=== PATIENT | male | born 1945 | race Caucasian/White ===

== ENCOUNTER 2021-09-18 19:48 | Inpatient (IN) | payer BC, MEDICARE ==
[~2021-09-18] VITALS: Ht 172.7 cm; Wt 62.8 kg
[~2021-09-18 19:48] MED LIST: ALBU90AE INH; ETOMIDATE 2MG/ML 10ML VIAL IV ONE; LEVO250T58 MT; SODIUM CHLORIDE 0.9% 10ML VIAL ONE; VECURONIUM BROMIDE 10 MG/VIAL IV ONE
[2021-09-18 22:01] LABS: HEMATOCRIT. 32.9 % (42.0-52.0); HEMOGLOBIN. 11.2 g/dL (14.0-18.0); MEAN CORPUSCULAR VOLUME 100.4 fL (80.0-94.0); MEAN PLATELET VOLUME 9.1 fl (7.4-10.4); PLATELET 243 x1000/uL (130-400); RED BLOOD CELL COUNT 3.28 mill/uL (4.7-6.1); RED CELL DISTRIBUTION WIDTH 13.7 % (11.6-14.6)
[2021-09-18 22:07] LABS: CHLORIDE 107 mEq/L (98-107)
[2021-09-18 22:15] LABS: BG BASE EXCESS 2.8 mmol/L (-2.0-2.0); BG CARBOXYHEMOGLOBIN 0.5 % (0.5-1.5); BG DEOXYHEMOGLOBIN 1.5 % (0.0-5.0); BG FRACTION INSPIRED OXYGEN 40; BG HCO3 ACT 25.5 mmol/L (22.0-26.0); BG METHEMOGLOBIN 0.3 % (0.0-1.5); BG OXYGEN SATURATION 98.5 % (92.0-98.5); BG OXYHEMOGLOBIN 97.7 % (94.0-97.0); BG PCO2 33.1 mmHg (35.0-45.0); BG PH 7.505 (7.350-7.450); BG PO2 130.8 mmHg (75.0-100.0); BG SAMPLE SITE RIGHT RADIAL; BG TOTAL HEMOGLOBIN 12.8 g/dL (12.0-18.0); BG VENT MODE VENT - AC
[2021-09-18] MEDS ORDERED: VANCOMYCIN 1G PREMIX 200 ML IV ONE (22:30)
[2021-09-18] MEDS ORDERED: PIPERACILLIN/TAZ 3.375G PREMIX 50 ML IV ONE (22:30)
[2021-09-18] MEDS ORDERED: DEXTROSE 50% WATER 50ML SYRINGE IV ONE ×2 (22:30)
[2021-09-18 22:31] LABS: PLATELET ESTIMATE NORMAL
[2021-09-18] MEDS ORDERED: FENTANYL CITRATE/PF 50MCG/ML 2ML VIAL IV ONE (23:45)
[2021-09-18] MEDS ORDERED: PROPOFOL 10MG/ML 100ML 100 ML IV ONE (23:45)
[2021-09-19] MEDS ORDERED: LORAZEPAM 2MG/ML CPJ IV PRN (03:00)
[2021-09-19] MEDS ORDERED: PROPOFOL 10MG/ML 100ML 100 ML IV SCH (03:45)
[2021-09-19 04:06] LABS: HEPATITIS B SURFACE ANTIGEN NEGATIVE
[2021-09-19] MEDS ORDERED: LORAZEPAM 0.5MG TABLET PO PRN (11:30)
[2021-09-19] MEDS ORDERED: GUAIFENESIN 200MG/10ML SUGAR FREE UDC PO PRN (11:30)
[2021-09-19] MEDS ORDERED: PROPOFOL 10MG/ML 100ML 100 ML IV PRN (11:30)
[2021-09-19] MEDS ORDERED: IPRATROPIUM/ALBUTEROL 0.5-3(2.5)MG/3ML NEB NEB PRN (11:30)
[2021-09-19] MEDS ORDERED: ACETAMINOPHEN 650MG SUPP PR PRN (11:30)
[2021-09-19] MEDS ORDERED: DOCUSATE SODIUM 100MG CAPSULE PO PRN (11:30)
[2021-09-19] MEDS ORDERED: MAGNESIUM/ALUMINUM HYDROXIDE/SIMETHICONE 30ML UDC PO PRN (11:30)
[2021-09-19] MEDS ORDERED: HYDROCODONE/ACETAMINOPHEN 5/325MG TABLET PO PRN (11:30)
[2021-09-19] MEDS: BLOOD SUGAR DIAGNOSTIC STRIP TEST SCH ×3 (11:30→21:39)
[2021-09-19] MEDS ORDERED: DEXTROSE 50% WATER 50ML SYRINGE IV PRN (11:30)
[2021-09-19] MEDS ORDERED: NA PHOS,M-B/NA PHOS,DI-BA ENEMA 118ML PR PRN (11:30)
[2021-09-19] MEDS ORDERED: PIPERACILLIN/TAZ 3.375G PREMIX 50 ML IV NR (11:45)
[2021-09-19] MEDS ORDERED: NALOXONE HCL 0.4MG/ML VIAL IV PRN (11:45)
[2021-09-19 11:56] LABS: BG BASE EXCESS 2.5 mmol/L (-2.0-2.0); BG CARBOXYHEMOGLOBIN 0.1 % (0.5-1.5); BG DEOXYHEMOGLOBIN 12.8 % (0.0-5.0); BG HCO3 ACT 26.3 mmol/L (22.0-26.0); BG OXYGEN SATURATION 87.2 % (92.0-98.5); BG OXYHEMOGLOBIN 87.1 % (94.0-97.0); BG PCO2 37.5 mmHg (35.0-45.0); BG PH 7.463 (7.350-7.450); BG PO2 50.3 mmHg (75.0-100.0); BG SAMPLE SITE RIGHT BRACHIAL; BG TOTAL HEMOGLOBIN 12.1 g/dL (12.0-18.0); BG VENT MODE VENT - AC
[2021-09-19] MEDS ORDERED: VANCOMYCIN 750MG PREMIX 150 ML IV NR (12:00)
[2021-09-19] MEDS: DEXT 5%/0.45% NACL 1000ML 1,000 ML IV SCH (12:40)
[2021-09-19] MEDS ORDERED: DEXTROSE 50% WATER 50ML SYRINGE IV ONE (12:46)
[2021-09-19 13:23] LABS: HEMATOCRIT. 33.5 % (42.0-52.0); HEMOGLOBIN. 10.8 g/dL (14.0-18.0); MEAN CORPUSCULAR HEMOGLOBIN 33.1 pg (28.0-32.0); MEAN CORPUSCULAR VOLUME 102.4 fL (80.0-94.0); MEAN PLATELET VOLUME 9.2 fl (7.4-10.4); PLATELET 206 x1000/uL (130-400); RED BLOOD CELL COUNT 3.27 mill/uL (4.7-6.1); RED CELL DISTRIBUTION WIDTH 13.6 % (11.6-14.6)
[2021-09-19 13:29] LABS: CHLORIDE 110 mEq/L (98-107)
[2021-09-19 13:31] LABS: INR 1.1; PROTHROMBIN TIME 11.9 sec (9.6-11.0)
[2021-09-19 13:39] LABS: CREATINE KINASE 149 IU/L (39-308)
[2021-09-19 13:42] LABS: CREATINE KINASE MB FRACTION 7.4 ng/mL (0.5-3.6)
[2021-09-19 14:07] LABS: PLATELET ESTIMATE NORMAL
[2021-09-19] MEDS ORDERED: VANCOMYCIN 1G PREMIX 200 ML IV SCH (15:00)
[2021-09-19 15:50] LABS: *AMPHETAMINES SCREEN URINE NEGATIVE (NEGATIVE); *BARBITURATES SCREEN URINE NEGATIVE (NEGATIVE); *BENZODIAZEPINES SCREEN URINE NEGATIVE (NEGATIVE); *COCAINE SCREEN URINE NEGATIVE (NEGATIVE)
[2021-09-19 15:51] LABS: CANNABINOID URINE SCREEN NEGATIVE (NEGATIVE); METHADONE URINE SCREEN NEGATIVE (NEGATIVE); OPIATES URINE SCREEN NEGATIVE (NEGATIVE); PHENCYCLIDINE URINE SCREEN NEGATIVE (NEGATIVE)
[2021-09-19] MEDS ORDERED: PIPERACILLIN/TAZOBACTAM 3.375 G in DEXTROSE 5% WATER 50 ML IV SCH (21:00)
[2021-09-19 23:40] VITALS: BP 116/50
[2021-09-19 23:53] LABS: CREATINE KINASE MB FRACTION 4.3 ng/mL (0.5-3.6)
[2021-09-20] VITALS (33 sets, daily range): BP systolic 108–149; BP diastolic 53–71
[2021-09-20] MEDS: BLOOD SUGAR DIAGNOSTIC STRIP TEST SCH ×5 (00:14→18:21)
[2021-09-20] MEDS: ACETAMINOPHEN 325MG TABLET PO PRN (01:48)
[2021-09-20] MEDS: DEXT 5%/0.45% NACL 1000ML 1,000 ML IV SCH ×2 (05:01→20:58)
[2021-09-20 05:55] LABS: HEMATOCRIT. 31.7 % (42.0-52.0); MEAN CORPUSCULAR HEMOGLOBIN 32.9 pg (28.0-32.0); MEAN CORPUSCULAR VOLUME 103.9 fL (80.0-94.0); MEAN PLATELET VOLUME 9.7 fl (7.4-10.4); PLATELET 207 x1000/uL (130-400); RED BLOOD CELL COUNT 3.05 mill/uL (4.7-6.1); RED CELL DISTRIBUTION WIDTH 14.4 % (11.6-14.6)
[2021-09-20 06:12] LABS: CHLORIDE 106 mEq/L (98-107)
[2021-09-20] MEDS: IPRATROPIUM/ALBUTEROL 0.5-3(2.5)MG/3ML NEB NEB SCH ×3 (08:00→20:22)
[2021-09-20] MEDS ORDERED: PIPERACILLIN/TAZOBACTAM 3.375 G in DEXTROSE 5% WATER 50 ML IV SCH (09:00)
[2021-09-20 09:25] LABS: BG BASE EXCESS 0.7 mmol/L (-2.0-2.0); BG CARBOXYHEMOGLOBIN 0.2 % (0.5-1.5); BG DEOXYHEMOGLOBIN 2.5 % (0.0-5.0); BG FRACTION INSPIRED OXYGEN 80; BG HCO3 ACT 24.5 mmol/L (22.0-26.0); BG METHEMOGLOBIN 0.1 % (0.0-1.5); BG OXYGEN SATURATION 97.5 % (92.0-98.5); BG OXYHEMOGLOBIN 97.2 % (94.0-97.0); BG PO2 105.9 mmHg (75.0-100.0); BG SAMPLE SITE RIGHT RADIAL; BG TOTAL HEMOGLOBIN 10.5 g/dL (12.0-18.0); BG VENT MODE VENT - AC
[2021-09-20] MEDS ORDERED: MEROPENEM 500 MG in SODIUM CHLORIDE 0.9% 50 ML IV SCH (10:00)
[2021-09-20] MEDS ORDERED: PROPOFOL 10MG/ML 100ML 100 ML IV PRN (11:15)
[2021-09-20] MEDS ORDERED: DEXTROSE 50% WATER 50ML SYRINGE IV PRN (11:30)
[2021-09-20] MEDS: MEROPENEM 1000MG in NORMAL SALINE 100ML IV SCH (11:49)
[2021-09-20 15:41] LABS: PLATELET ESTIMATE NORMAL
[2021-09-20 18:13] LABS: CREATINE KINASE MB FRACTION 2.8 ng/mL (0.5-3.6)
[2021-09-20] MEDS ORDERED: BUPIVACAINE HCL/PF 0.5% (5MG/ML) 30ML ONE (20:13)
[2021-09-20] MEDS ORDERED: LIDOCAINE HCL 1% 20ML VIAL (Pyxis) INJ ONE (20:13)
[2021-09-20] MEDS ORDERED: SKIN ADHESIVE 0.7 GM EA TOP ONE (20:13)
[2021-09-20] MEDS ORDERED: POLYMYXIN B SULFATE 500000 UNITS/VIAL ONE (20:13)
[2021-09-20] MEDS ORDERED: ROCURONIUM BROMIDE 10MG/ML VIAL 5ML IV ONE (21:25)
[2021-09-20] MEDS ORDERED: HYDROMORPHONE HCL/PF 2MG/ML (OR) ONE (21:28)
[2021-09-20] MEDS ORDERED: DEXAMETHASONE 4MG/ML 1ML VIAL ONE (21:30)
[2021-09-20] MEDS ORDERED: CALCIUM CHLORIDE 1GM/10ML SYR IV ONE (21:39)
[2021-09-20] MEDS ORDERED: MIDAZOLAM HCL 5 MG/5 ML VIAL ONE (22:55)
[2021-09-20] MEDS ORDERED: MORPHINE SULFATE 4 MG/ML CPJ (NOT FOR IM USE) IV PRN (23:15)
[2021-09-21] VITALS (58 sets, daily range): BP systolic 117–169; BP diastolic 54–84
[2021-09-21] MEDS: BLOOD SUGAR DIAGNOSTIC STRIP TEST SCH ×4 (00:12→18:00)
[2021-09-21] MEDS: IPRATROPIUM/ALBUTEROL 0.5-3(2.5)MG/3ML NEB NEB SCH ×4 (00:16→21:27)
[2021-09-21] MEDS: ACETAMINOPHEN 325MG TABLET PO PRN (00:56)
[2021-09-21 06:09] LABS: HEMATOCRIT. 32.3 % (42.0-52.0); HEMOGLOBIN. 10.2 g/dL (14.0-18.0); MEAN CORPUSCULAR HEMOGLOBIN 33.2 pg (28.0-32.0); MEAN CORPUSCULAR VOLUME 104.8 fL (80.0-94.0); MEAN PLATELET VOLUME 9.9 fl (7.4-10.4); PLATELET 211 x1000/uL (130-400); RED BLOOD CELL COUNT 3.08 mill/uL (4.7-6.1)
[2021-09-21 06:22] LABS: CHLORIDE 104 mEq/L (98-107)
[2021-09-21 07:38] LABS: PLATELET ESTIMATE NORMAL
[2021-09-21 08:33] LABS: BG BASE EXCESS -7.9 mmol/L (-2.0-2.0); BG CARBOXYHEMOGLOBIN 0.3 % (0.5-1.5); BG DEOXYHEMOGLOBIN 5.6 % (0.0-5.0); BG FRACTION INSPIRED OXYGEN 40; BG METHEMOGLOBIN 0.3 % (0.0-1.5); BG OXYGEN SATURATION 94.4 % (92.0-98.5); BG OXYHEMOGLOBIN 93.8 % (94.0-97.0); BG PCO2 27.7 mmHg (35.0-45.0); BG PH 7.379 (7.350-7.450); BG PO2 74.8 mmHg (75.0-100.0); BG TOTAL HEMOGLOBIN 10.7 g/dL (12.0-18.0); BG VENT MODE VENT - AC
[2021-09-21] MEDS: FAMOTIDINE 20MG/2ML VIAL IV SCH (08:50)
[2021-09-21] MEDS: MEROPENEM 1000MG in NORMAL SALINE 100ML IV SCH (10:35)
[2021-09-21] MEDS: DEXT 5%/0.45% NACL 1000ML 1,000 ML IV SCH (10:36)
[2021-09-21] MEDS: PROPOFOL 10MG/ML 100ML 100 ML IV PRN ×2 (11:36→23:12)
[2021-09-21] MEDS ORDERED: VANCOMYCIN 1G PREMIX 200 ML IV NR (12:00)
[2021-09-21] MEDS ORDERED: LIDOCAINE HCL/PF 1% 10 MG/ML 5ML VIAL ONE (13:08)
[2021-09-21] MEDS ORDERED: PRED5TAB MT (13:50)
[2021-09-21] MEDS ORDERED: TACR1TAB MT (13:50)
[2021-09-21] MEDS ORDERED: TAMS-11 MT (13:50)
[2021-09-21] MEDS ORDERED: SIMV-43 MT (13:50)
[2021-09-21] MEDS ORDERED: LABE200T9 MT (13:50)
[2021-09-21] MEDS ORDERED: DOCU-138 MT (13:50)
[2021-09-21] MEDS ORDERED: SULF1TAB48 MT ×2 (13:50)
[2021-09-21] MEDS ORDERED: TRAM50TA94 MT (13:50)
[2021-09-21] MEDS ORDERED: INSU100I45 (13:50)
[2021-09-21] MEDS ORDERED: INSU100I28 SQ (13:50)
[2021-09-21] MEDS ORDERED: BUME2TAB7 PO (13:50)
[2021-09-21] MEDS ORDERED: PROT40 MT (13:50)
[2021-09-21] MEDS ORDERED: LIDO700A30 TP (13:50)
[2021-09-21] MEDS ORDERED: FINA5TAB11 MT (13:50)
[2021-09-21] MEDS ORDERED: POLY17PO3 MT (13:50)
[2021-09-21] MEDS ORDERED: NIFE-32 PO (13:50)
[2021-09-22] VITALS (53 sets, daily range): BP systolic 75–209; BP diastolic 23–147
[2021-09-22] MEDS: BLOOD SUGAR DIAGNOSTIC STRIP TEST SCH ×4 (00:48→18:20)
[2021-09-22] MEDS: IPRATROPIUM/ALBUTEROL 0.5-3(2.5)MG/3ML NEB NEB SCH ×4 (02:32→20:21)
[2021-09-22] MEDS: PROPOFOL 10MG/ML 100ML 100 ML IV PRN ×3 (05:36→19:53)
[2021-09-22] MEDS: CLONIDINE 0.1MG TABLET PO PRN (05:40)
[2021-09-22 06:06] LABS: HEMATOCRIT. 29.2 % (42.0-52.0); HEMOGLOBIN. 9.7 g/dL (14.0-18.0); MEAN CORPUSCULAR VOLUME 101.9 fL (80.0-94.0); MEAN PLATELET VOLUME 9.5 fl (7.4-10.4); PLATELET 210 x1000/uL (130-400); RED BLOOD CELL COUNT 2.87 mill/uL (4.7-6.1)
[2021-09-22 07:24] LABS: PLATELET ESTIMATE NORMAL
[2021-09-22] MEDS: FAMOTIDINE 20MG/2ML VIAL IV SCH (08:32)
[2021-09-22 09:10] LABS: BG DEOXYHEMOGLOBIN 2.8 % (0.0-5.0); BG FRACTION INSPIRED OXYGEN 35; BG HCO3 ACT 23.8 mmol/L (22.0-26.0); BG OXYGEN SATURATION 97.2 % (92.0-98.5); BG OXYHEMOGLOBIN 97.2 % (94.0-97.0); BG PCO2 31.1 mmHg (35.0-45.0); BG PH 7.501 (7.350-7.450); BG PO2 98.1 mmHg (75.0-100.0); BG SAMPLE SITE RIGHT RADIAL; BG TOTAL HEMOGLOBIN 9.9 g/dL (12.0-18.0); BG VENT MODE VENT - AC
[2021-09-22] MEDS: MEROPENEM 1000MG in NORMAL SALINE 100ML IV SCH (11:45)
[2021-09-22 11:59] LABS: BG BASE EXCESS -0.3 mmol/L (-2.0-2.0); BG CARBOXYHEMOGLOBIN 0.3 % (0.5-1.5); BG DEOXYHEMOGLOBIN 5.1 % (0.0-5.0); BG FRACTION INSPIRED OXYGEN 35; BG HCO3 ACT 23.7 mmol/L (22.0-26.0); BG METHEMOGLOBIN 0.1 % (0.0-1.5); BG OXYGEN SATURATION 94.9 % (92.0-98.5); BG OXYHEMOGLOBIN 94.5 % (94.0-97.0); BG PCO2 36.4 mmHg (35.0-45.0); BG PH 7.432 (7.350-7.450); BG PO2 83.4 mmHg (75.0-100.0); BG SAMPLE SITE RIGHT RADIAL; BG TOTAL HEMOGLOBIN 11.4 g/dL (12.0-18.0); BG VENT MODE VENT - CPAP
[2021-09-22] MEDS: DEXT 5%/0.45% NACL 1000ML 1,000 ML IV SCH (16:49)
[2021-09-22] MEDS: INSULIN LISPRO 100 UNITS/ML SUBCUT SCH (19:16)
[2021-09-22] MEDS: PIPERACILLIN/TAZOBACTAM 3.375 G in DEXTROSE 5% WATER 50 ML IV SCH (21:23)
[2021-09-23] VITALS (51 sets, daily range): BP systolic 106–237; BP diastolic 46–141
[2021-09-23] MEDS: BLOOD SUGAR DIAGNOSTIC STRIP TEST SCH ×5 (00:40→23:52)
[2021-09-23] MEDS: IPRATROPIUM/ALBUTEROL 0.5-3(2.5)MG/3ML NEB NEB SCH ×5 (01:14→20:44)
[2021-09-23] MEDS: PROPOFOL 10MG/ML 100ML 100 ML IV PRN ×2 (04:37→13:08)
[2021-09-23] MEDS: INSULIN LISPRO 100 UNITS/ML SUBCUT SCH ×5 (06:05→23:27)
[2021-09-23 06:08] LABS: HEMATOCRIT. 28.4 % (42.0-52.0); HEMOGLOBIN. 9.4 g/dL (14.0-18.0); MEAN CORPUSCULAR HEMOGLOBIN 34.2 pg (28.0-32.0); MEAN CORPUSCULAR VOLUME 102.8 fL (80.0-94.0); MEAN PLATELET VOLUME 9.4 fl (7.4-10.4); PLATELET 201 x1000/uL (130-400); RED BLOOD CELL COUNT 2.77 mill/uL (4.7-6.1); RED CELL DISTRIBUTION WIDTH 13.8 % (11.6-14.6)
[2021-09-23 07:12] LABS: CHLORIDE 106 mEq/L (98-107)
[2021-09-23 07:42] LABS: BG BASE EXCESS 0.1 mmol/L (-2.0-2.0); BG CARBOXYHEMOGLOBIN 0.3 % (0.5-1.5); BG DEOXYHEMOGLOBIN 2.6 % (0.0-5.0); BG FRACTION INSPIRED OXYGEN 30; BG HCO3 ACT 22.6 mmol/L (22.0-26.0); BG OXYGEN SATURATION 97.4 % (92.0-98.5); BG OXYHEMOGLOBIN 97.1 % (94.0-97.0); BG PCO2 28.8 mmHg (35.0-45.0); BG PH 7.512 (7.350-7.450); BG PO2 106.3 mmHg (75.0-100.0); BG SAMPLE SITE LEFT RADIAL; BG TOTAL HEMOGLOBIN 9.6 g/dL (12.0-18.0); BG VENT MODE VENT - AC/VC
[2021-09-23] MEDS: FAMOTIDINE 20MG/2ML VIAL IV SCH (08:55)
[2021-09-23] MEDS: PIPERACILLIN/TAZOBACTAM 3.375 G in DEXTROSE 5% WATER 50 ML IV SCH ×2 (08:55→21:00)
[2021-09-23 10:39] LABS: PLATELET ESTIMATE NORMAL
[2021-09-23] MEDS: DEXT 5%/0.45% NACL 1000ML 1,000 ML IV SCH (16:31)
[2021-09-23] MEDS: CLONIDINE 0.1MG TABLET PO PRN (16:36)
[2021-09-24] VITALS (50 sets, daily range): BP systolic 96–247; BP diastolic 48–113
[2021-09-24] MEDS: IPRATROPIUM/ALBUTEROL 0.5-3(2.5)MG/3ML NEB NEB SCH ×4 (01:26→20:22)
[2021-09-24] MEDS: PROPOFOL 10MG/ML 100ML 100 ML IV PRN ×4 (02:37→22:55)
[2021-09-24] MEDS: BLOOD SUGAR DIAGNOSTIC STRIP TEST SCH ×3 (05:38→17:17)
[2021-09-24] MEDS: INSULIN LISPRO 100 UNITS/ML SUBCUT SCH ×3 (05:38→17:18)
[2021-09-24 06:11] LABS: HEMATOCRIT. 27.9 % (42.0-52.0); HEMOGLOBIN. 9.2 g/dL (14.0-18.0); MEAN CORPUSCULAR HEMOGLOBIN 33.7 pg (28.0-32.0); MEAN CORPUSCULAR VOLUME 102.2 fL (80.0-94.0); MEAN PLATELET VOLUME 9.3 fl (7.4-10.4); PLATELET 196 x1000/uL (130-400); RED BLOOD CELL COUNT 2.73 mill/uL (4.7-6.1); RED CELL DISTRIBUTION WIDTH 13.6 % (11.6-14.6)
[2021-09-24 06:14] LABS: CHLORIDE 105 mEq/L (98-107)
[2021-09-24] MEDS: PIPERACILLIN/TAZOBACTAM 3.375 G in DEXTROSE 5% WATER 50 ML IV SCH ×2 (08:08→21:53)
[2021-09-24] MEDS: FAMOTIDINE 20MG/2ML VIAL IV SCH (08:08)
[2021-09-24 09:40] LABS: BG BASE EXCESS 0.3 mmol/L (-2.0-2.0); BG CARBOXYHEMOGLOBIN 0.3 % (0.5-1.5); BG FRACTION INSPIRED OXYGEN 30; BG HCO3 ACT 23.6 mmol/L (22.0-26.0); BG METHEMOGLOBIN 0.1 % (0.0-1.5); BG OXYHEMOGLOBIN 94.6 % (94.0-97.0); BG PCO2 33.3 mmHg (35.0-45.0); BG PH 7.468 (7.350-7.450); BG PO2 79.5 mmHg (75.0-100.0); BG SAMPLE SITE RIGHT RADIAL; BG TOTAL HEMOGLOBIN 10.7 g/dL (12.0-18.0); BG VENT MODE VENT - CPAP
[2021-09-24 10:55] LABS: PLATELET ESTIMATE NORMAL
[2021-09-24] MEDS: PREDNISONE 5MG TABLET PO SCH (11:13)
[2021-09-25] VITALS (59 sets, daily range): BP systolic 108–189; BP diastolic 20–116
[2021-09-25] MEDS: BLOOD SUGAR DIAGNOSTIC STRIP TEST SCH ×5 (00:01→23:49)
[2021-09-25] MEDS: CLONIDINE 0.1MG TABLET PO PRN ×4 (00:05→18:06)
[2021-09-25] MEDS: INSULIN LISPRO 100 UNITS/ML SUBCUT SCH ×5 (00:06→23:49)
[2021-09-25] MEDS: IPRATROPIUM/ALBUTEROL 0.5-3(2.5)MG/3ML NEB NEB SCH ×4 (01:02→20:38)
[2021-09-25] MEDS: PROPOFOL 10MG/ML 100ML 100 ML IV PRN ×4 (04:01→22:48)
[2021-09-25 05:37] LABS: HEMATOCRIT. 26.3 % (42.0-52.0); HEMOGLOBIN. 8.8 g/dL (14.0-18.0); MEAN CORPUSCULAR HEMOGLOBIN 34.1 pg (28.0-32.0); MEAN PLATELET VOLUME 9.2 fl (7.4-10.4); PLATELET 196 x1000/uL (130-400); RED BLOOD CELL COUNT 2.58 mill/uL (4.7-6.1); RED CELL DISTRIBUTION WIDTH 13.7 % (11.6-14.6)
[2021-09-25 05:51] LABS: CHLORIDE 103 mEq/L (98-107)
[2021-09-25] MEDS: PIPERACILLIN/TAZOBACTAM 3.375 G in DEXTROSE 5% WATER 50 ML IV SCH ×2 (08:50→20:06)
[2021-09-25] MEDS: FAMOTIDINE 20MG/2ML VIAL IV SCH (08:50)
[2021-09-25] MEDS: PREDNISONE 5MG TABLET PO SCH (08:50)
[2021-09-25 10:31] LABS: PLATELET ESTIMATE NORMAL
[2021-09-25] MEDS: LORAZEPAM 2MG/ML CPJ IV PRN ×2 (16:51→20:06)
[2021-09-26] VITALS (55 sets, daily range): BP systolic 121–177; BP diastolic 46–101
[2021-09-26] MEDS: IPRATROPIUM/ALBUTEROL 0.5-3(2.5)MG/3ML NEB NEB SCH ×4 (02:15→20:07)
[2021-09-26] MEDS: ACETAMINOPHEN 325MG TABLET PO PRN (04:01)
[2021-09-26] MEDS: LORAZEPAM 2MG/ML CPJ IV PRN (06:34)
[2021-09-26] MEDS: BLOOD SUGAR DIAGNOSTIC STRIP TEST SCH ×3 (06:34→18:36)
[2021-09-26] MEDS: INSULIN LISPRO 100 UNITS/ML SUBCUT SCH ×3 (06:34→17:52)
[2021-09-26 06:39] LABS: HEMOGLOBIN. 9.8 g/dL (14.0-18.0); MEAN CORPUSCULAR HEMOGLOBIN 34.2 pg (28.0-32.0); MEAN CORPUSCULAR VOLUME 101.6 fL (80.0-94.0); MEAN PLATELET VOLUME 9.4 fl (7.4-10.4); PLATELET 272 x1000/uL (130-400); RED BLOOD CELL COUNT 2.86 mill/uL (4.7-6.1); RED CELL DISTRIBUTION WIDTH 13.6 % (11.6-14.6)
[2021-09-26] MEDS ORDERED: MORPHINE SULFATE 2 MG/ML CPJ (NOT FOR IM USE) IV PRN (08:00)
[2021-09-26] MEDS: FAMOTIDINE 20MG/2ML VIAL IV SCH (08:17)
[2021-09-26] MEDS: AMLODIPINE 5MG TABLET PO SCH ×2 (08:17→21:45)
[2021-09-26] MEDS: PREDNISONE 5MG TABLET PO SCH (08:17)
[2021-09-26] MEDS: PIPERACILLIN/TAZOBACTAM 3.375 G in DEXTROSE 5% WATER 50 ML IV SCH ×2 (08:18→21:44)
[2021-09-26] MEDS: PROPOFOL 10MG/ML 100ML 100 ML IV PRN ×3 (08:20→21:35)
[2021-09-26 10:53] LABS: BG BASE EXCESS 0.5 mmol/L (-2.0-2.0); BG CARBOXYHEMOGLOBIN 0.3 % (0.5-1.5); BG DEOXYHEMOGLOBIN 5.8 % (0.0-5.0); BG HCO3 ACT 22.6 mmol/L (22.0-26.0); BG METHEMOGLOBIN 0.3 % (0.0-1.5); BG OXYGEN SATURATION 94.2 % (92.0-98.5); BG OXYHEMOGLOBIN 93.6 % (94.0-97.0); BG PCO2 27.8 mmHg (35.0-45.0); BG PH 7.527 (7.350-7.450); BG PO2 68.5 mmHg (75.0-100.0); BG SAMPLE SITE RIGHT RADIAL; BG TOTAL HEMOGLOBIN 10.2 g/dL (12.0-18.0); BG VENT MODE VENT - AC
[2021-09-26 13:00] LABS: NUCLEATED RED BLOOD CELLS 1 /100 WBC; PLATELET ESTIMATE NORMAL
[2021-09-26] MEDS: HYDRALAZINE HCL 50MG TABLET PO SCH (21:45)
[2021-09-27] VITALS (23 sets, daily range): BP systolic 107–191; BP diastolic 50–106
[2021-09-27] MEDS: IPRATROPIUM/ALBUTEROL 0.5-3(2.5)MG/3ML NEB NEB SCH ×4 (02:09→20:52)
[2021-09-27] MEDS: PROPOFOL 10MG/ML 100ML 100 ML IV PRN ×3 (03:39→20:57)
[2021-09-27] MEDS: HYDRALAZINE HCL 50MG TABLET PO SCH ×4 (06:00→21:49)
[2021-09-27] MEDS: INSULIN LISPRO 100 UNITS/ML SUBCUT SCH ×4 (06:35→17:51)
[2021-09-27] MEDS: BLOOD SUGAR DIAGNOSTIC STRIP TEST SCH ×3 (06:36→17:46)
[2021-09-27 06:38] LABS: HEMATOCRIT. 26.7 % (42.0-52.0); HEMOGLOBIN. 8.9 g/dL (14.0-18.0); MEAN CORPUSCULAR HEMOGLOBIN 33.8 pg (28.0-32.0); MEAN CORPUSCULAR VOLUME 101.3 fL (80.0-94.0); MEAN PLATELET VOLUME 9.2 fl (7.4-10.4); PLATELET 319 x1000/uL (130-400); RED BLOOD CELL COUNT 2.63 mill/uL (4.7-6.1); RED CELL DISTRIBUTION WIDTH 13.6 % (11.6-14.6)
[2021-09-27 08:27] LABS: PLATELET ESTIMATE NORMAL
[2021-09-27 10:41] LABS: BG BASE EXCESS 4.1 mmol/L (-2.0-2.0); BG CARBOXYHEMOGLOBIN 0.3 % (0.5-1.5); BG DEOXYHEMOGLOBIN 5.8 % (0.0-5.0); BG FRACTION INSPIRED OXYGEN 30; BG HCO3 ACT 26.3 mmol/L (22.0-26.0); BG METHEMOGLOBIN 0.1 % (0.0-1.5); BG OXYGEN SATURATION 94.2 % (92.0-98.5); BG OXYHEMOGLOBIN 93.8 % (94.0-97.0); BG PCO2 30.7 mmHg (35.0-45.0); BG SAMPLE SITE RIGHT RADIAL; BG TOTAL HEMOGLOBIN 10.3 g/dL (12.0-18.0); BG VENT MODE VENT - AC
[2021-09-27] MEDS: PREDNISONE 5MG TABLET PO SCH (11:36)
[2021-09-27] MEDS: FAMOTIDINE 20MG/2ML VIAL IV SCH (11:37)
[2021-09-27] MEDS: AMLODIPINE 5MG TABLET PO SCH ×2 (11:47→21:49)
[2021-09-27] MEDS: PIPERACILLIN/TAZOBACTAM 3.375 G in DEXTROSE 5% WATER 50 ML IV SCH (11:51)
[2021-09-27 13:25] LABS: BG BASE EXCESS 1.3 mmol/L (-2.0-2.0); BG CARBOXYHEMOGLOBIN 0.3 % (0.5-1.5); BG FRACTION INSPIRED OXYGEN 40; BG HCO3 ACT 24.2 mmol/L (22.0-26.0); BG METHEMOGLOBIN 0.1 % (0.0-1.5); BG OXYHEMOGLOBIN 93.6 % (94.0-97.0); BG PCO2 32.1 mmHg (35.0-45.0); BG PH 7.495 (7.350-7.450); BG SAMPLE SITE RIGHT RADIAL; BG TOTAL HEMOGLOBIN 10.4 g/dL (12.0-18.0); BG VENT MODE VENT - CPAP
[2021-09-27] MEDS: LORAZEPAM 2MG/ML CPJ IV PRN (13:52)
[2021-09-28] VITALS (78 sets, daily range): BP systolic 114–222; BP diastolic 34–116
[2021-09-28] MEDS: BLOOD SUGAR DIAGNOSTIC STRIP TEST SCH ×4 (00:22→17:20)
[2021-09-28] MEDS: INSULIN LISPRO 100 UNITS/ML SUBCUT SCH ×4 (00:28→17:22)
[2021-09-28] MEDS: IPRATROPIUM/ALBUTEROL 0.5-3(2.5)MG/3ML NEB NEB SCH ×4 (01:09→20:32)
[2021-09-28] MEDS: HYDRALAZINE HCL 50MG TABLET PO SCH ×3 (05:35→22:46)
[2021-09-28 05:49] LABS: HEMATOCRIT. 30.2 % (42.0-52.0); HEMOGLOBIN. 9.7 g/dL (14.0-18.0); MEAN CORPUSCULAR HEMOGLOBIN 32.7 pg (28.0-32.0); MEAN CORPUSCULAR VOLUME 101.7 fL (80.0-94.0); MEAN PLATELET VOLUME 9.2 fl (7.4-10.4); PLATELET 390 x1000/uL (130-400); RED BLOOD CELL COUNT 2.97 mill/uL (4.7-6.1); RED CELL DISTRIBUTION WIDTH 13.5 % (11.6-14.6)
[2021-09-28] MEDS: FAMOTIDINE 20MG/2ML VIAL IV SCH (08:25)
[2021-09-28] MEDS: ACETAMINOPHEN 325MG TABLET PO PRN (08:25)
[2021-09-28] MEDS: PREDNISONE 5MG TABLET PO SCH (08:25)
[2021-09-28] MEDS: AMLODIPINE 5MG TABLET PO SCH ×2 (08:25→21:18)
[2021-09-28 08:58] LABS: BG BASE EXCESS 1.6 mmol/L (-2.0-2.0); BG CARBOXYHEMOGLOBIN 0.3 % (0.5-1.5); BG DEOXYHEMOGLOBIN 3.3 % (0.0-5.0); BG FRACTION INSPIRED OXYGEN 30; BG HCO3 ACT 25.1 mmol/L (22.0-26.0); BG METHEMOGLOBIN 0.1 % (0.0-1.5); BG OXYGEN SATURATION 96.7 % (92.0-98.5); BG OXYHEMOGLOBIN 96.3 % (94.0-97.0); BG PCO2 35.2 mmHg (35.0-45.0); BG PH 7.471 (7.350-7.450); BG PO2 89.1 mmHg (75.0-100.0); BG SAMPLE SITE RIGHT RADIAL; BG TOTAL HEMOGLOBIN 10.8 g/dL (12.0-18.0); BG VENT MODE VENT - AC
[2021-09-28 09:06] LABS: PLATELET ESTIMATE NORMAL
[2021-09-28] MEDS ORDERED: POTASSIUM CHLORIDE 20MEQ/PACKET PO NR (10:00)
[2021-09-28] MEDS ORDERED: LEVOFLOXACIN 250MG PREMIX 50 ML IV SCH (11:00)
[2021-09-28] MEDS ORDERED: MIDAZOLAM HCL 100 MG in SODIUM CHLORIDE 0.9% 80 ML IV PRN (11:15)
[2021-09-28] MEDS ORDERED: FENTANYL CITRATE/PF 2,500 MCG in SODIUM CHLORIDE 0.9% 200 ML IV PRN (12:45)
[2021-09-28] MEDS ORDERED: FENTANYL 2500MCG/250ML PMX 250 ML IV PRN (12:45)
[2021-09-28] MEDS ORDERED: LEVOFLOXACIN 750MG PREMIX 150 ML IV NR (13:00)
[2021-09-28] MEDS ORDERED: VANCOMYCIN 1500MG in DEXTROSE 5% WATER 250ML IV NR (14:00)
[2021-09-28] MEDS ORDERED: TACR5CAP PO (19:19)
[2021-09-29] VITALS (88 sets, daily range): BP systolic 101–223; BP diastolic 31–138
[2021-09-29] MEDS: INSULIN LISPRO 100 UNITS/ML SUBCUT SCH ×5 (00:21→23:51)
[2021-09-29] MEDS: IPRATROPIUM/ALBUTEROL 0.5-3(2.5)MG/3ML NEB NEB SCH ×4 (01:21→20:07)
[2021-09-29] MEDS: BLOOD SUGAR DIAGNOSTIC STRIP TEST SCH ×5 (06:00→23:51)
[2021-09-29] MEDS: HYDRALAZINE HCL 50MG TABLET PO SCH ×4 (06:32→22:00)
[2021-09-29 06:38] LABS: HEMATOCRIT. 28.1 % (42.0-52.0); HEMOGLOBIN. 9.3 g/dL (14.0-18.0); MEAN CORPUSCULAR HEMOGLOBIN 33.1 pg (28.0-32.0); MEAN CORPUSCULAR VOLUME 100.2 fL (80.0-94.0); MEAN PLATELET VOLUME 9.1 fl (7.4-10.4); PLATELET 403 x1000/uL (130-400); RED CELL DISTRIBUTION WIDTH 13.5 % (11.6-14.6)
[2021-09-29] MEDS: PREDNISONE 5MG TABLET PO SCH (08:19)
[2021-09-29] MEDS: FAMOTIDINE 20MG/2ML VIAL IV SCH (08:19)
[2021-09-29] MEDS: AMLODIPINE 5MG TABLET PO SCH ×3 (08:20→21:44)
[2021-09-29 09:49] LABS: PLATELET ESTIMATE SLIGHTLY INCREASED
[2021-09-29 11:17] LABS: BG BASE EXCESS -0.5 mmol/L (-2.0-2.0); BG CARBOXYHEMOGLOBIN 0.3 % (0.5-1.5); BG DEOXYHEMOGLOBIN 5.2 % (0.0-5.0); BG FRACTION INSPIRED OXYGEN 30; BG HCO3 ACT 23.8 mmol/L (22.0-26.0); BG METHEMOGLOBIN 0.3 % (0.0-1.5); BG OXYGEN SATURATION 94.8 % (92.0-98.5); BG OXYHEMOGLOBIN 94.2 % (94.0-97.0); BG PCO2 37.7 mmHg (35.0-45.0); BG PH 7.418 (7.350-7.450); BG PO2 76.8 mmHg (75.0-100.0); BG SAMPLE SITE RIGHT RADIAL; BG TOTAL HEMOGLOBIN 10.8 g/dL (12.0-18.0); BG VENT MODE VENT - AC
[2021-09-29] MEDS ORDERED: POTASSIUM CHLORIDE INJ 40 MEQ in DEXT 5% WATER 250 ML IV ONE (11:45)
[2021-09-29] MEDS: KCL 20MEQ/100ML X 2 FOR TOTAL KCL 40MEQ/200ML IV SCH ×2 (13:03→14:39)
[2021-09-29 13:24] LABS: BG BASE EXCESS 0.8 mmol/L (-2.0-2.0); BG CARBOXYHEMOGLOBIN 0.3 % (0.5-1.5); BG DEOXYHEMOGLOBIN 6.5 % (0.0-5.0); BG HCO3 ACT 25.2 mmol/L (22.0-26.0); BG OXYGEN SATURATION 93.5 % (92.0-98.5); BG OXYHEMOGLOBIN 93.2 % (94.0-97.0); BG PCO2 39.4 mmHg (35.0-45.0); BG PH 7.424 (7.350-7.450); BG PO2 70.1 mmHg (75.0-100.0); BG SAMPLE SITE RIGHT RADIAL; BG TOTAL HEMOGLOBIN 11.1 g/dL (12.0-18.0); BG VENT MODE VENT - CPAP
[2021-09-29] MEDS: METRONIDAZOLE 250MG TABLET PO SCH ×3 (14:39→22:00)
[2021-09-29 16:35] LABS: BG CARBOXYHEMOGLOBIN 0.3 % (0.5-1.5); BG DEOXYHEMOGLOBIN 2.3 % (0.0-5.0); BG HCO3 ACT 23.5 mmol/L (22.0-26.0); BG METHEMOGLOBIN 0.5 % (0.0-1.5); BG OXYGEN SATURATION 97.7 % (92.0-98.5); BG OXYHEMOGLOBIN 96.9 % (94.0-97.0); BG PCO2 38.3 mmHg (35.0-45.0); BG PH 7.405 (7.350-7.450); BG PO2 113.7 mmHg (75.0-100.0); BG SAMPLE SITE RIGHT RADIAL; BG TOTAL HEMOGLOBIN 11.1 g/dL (12.0-18.0); BG VENT MODE COOL AEROSOL
[2021-09-29] MEDS ORDERED: VANCOMYCIN 500MG PREMIX 100 ML IV SCH (21:00)
[2021-09-29] MEDS: DIPHENHYDRAMINE 50MG/ML VIAL IV PRN (21:44)
[2021-09-30] VITALS (54 sets, daily range): BP systolic 98–188; BP diastolic 44–126
[2021-09-30] MEDS: LORAZEPAM 2MG/ML CPJ IV PRN ×2 (00:07→20:50)
[2021-09-30] MEDS: HYDRALAZINE 20MG/ML VIAL IV PRN ×3 (01:16→09:47)
[2021-09-30] MEDS: DIPHENHYDRAMINE 50MG/ML VIAL IV PRN ×2 (02:28→17:43)
[2021-09-30] MEDS: IPRATROPIUM/ALBUTEROL 0.5-3(2.5)MG/3ML NEB NEB SCH ×3 (02:29→20:04)
[2021-09-30] MEDS ORDERED: HYDRALAZINE 20MG/ML VIAL IV SCH (04:00)
[2021-09-30] MEDS: HYDRALAZINE HCL 50MG TABLET PO SCH ×3 (05:02→21:56)
[2021-09-30] MEDS: METRONIDAZOLE 250MG TABLET PO SCH ×3 (05:02→21:56)
[2021-09-30] MEDS: INSULIN LISPRO 100 UNITS/ML SUBCUT SCH ×3 (05:31→18:00)
[2021-09-30] MEDS: BLOOD SUGAR DIAGNOSTIC STRIP TEST SCH ×3 (05:31→18:08)
[2021-09-30 05:44] LABS: HEMATOCRIT. 34.4 % (42.0-52.0); HEMOGLOBIN. 11.4 g/dL (14.0-18.0); MEAN CORPUSCULAR HEMOGLOBIN 33.1 pg (28.0-32.0); MEAN CORPUSCULAR VOLUME 100.1 fL (80.0-94.0); MEAN PLATELET VOLUME 8.6 fl (7.4-10.4); PLATELET 570 x1000/uL (130-400); RED BLOOD CELL COUNT 3.44 mill/uL (4.7-6.1); RED CELL DISTRIBUTION WIDTH 13.6 % (11.6-14.6)
[2021-09-30 09:10] LABS: BG BASE EXCESS -3.1 mmol/L (-2.0-2.0); BG CARBOXYHEMOGLOBIN 0.5 % (0.5-1.5); BG DEOXYHEMOGLOBIN 9.2 % (0.0-5.0); BG FRACTION INSPIRED OXYGEN 21; BG HCO3 ACT 21.2 mmol/L (22.0-26.0); BG OXYGEN SATURATION 90.8 % (92.0-98.5); BG OXYHEMOGLOBIN 90.3 % (94.0-97.0); BG PCO2 35.6 mmHg (35.0-45.0); BG PH 7.393 (7.350-7.450); BG PO2 60.4 mmHg (75.0-100.0); BG SAMPLE SITE RIGHT RADIAL; BG TOTAL HEMOGLOBIN 12.5 g/dL (12.0-18.0); BG VENT MODE ROOM AIR
[2021-09-30] MEDS: FAMOTIDINE 20MG/2ML VIAL IV SCH (09:46)
[2021-09-30] MEDS: AMLODIPINE 5MG TABLET PO SCH ×2 (09:46→21:56)
[2021-09-30] MEDS: PREDNISONE 5MG TABLET PO SCH (09:46)
[2021-09-30] MEDS ORDERED: LEVOFLOXACIN 500MG PREMIX 100 ML IV SCH (11:00)
[2021-09-30] MEDS ORDERED: DILTIAZEM HCL 5MG/ML 5ML VIAL IV SCH (11:30)
[2021-09-30] MEDS ORDERED: VANCOMYCIN HCL 1 GM/VIAL PO SCH (12:00)
[2021-09-30 12:55] LABS: PLATELET ESTIMATE INCREASED
[2021-09-30] MEDS ORDERED: MEROPENEM 500 MG in SODIUM CHLORIDE 0.9% 50 ML IV SCH (13:00)
[2021-09-30] MEDS: VANCOMYCIN 1000MG/20ML ORAL SOLN PO SCH ×2 (13:00→18:00)
[2021-09-30] MEDS: MEROPENEM 1000MG in NORMAL SALINE 100ML IV SCH (14:17)
[2021-09-30] MEDS: ACETAMINOPHEN 325MG TABLET PO PRN (15:45)
[2021-09-30 16:14] LABS: BG BASE EXCESS -2.2 mmol/L (-2.0-2.0); BG CARBOXYHEMOGLOBIN 0.3 % (0.5-1.5); BG FRACTION INSPIRED OXYGEN 30; BG HCO3 ACT 21.1 mmol/L (22.0-26.0); BG METHEMOGLOBIN 0.2 % (0.0-1.5); BG OXYHEMOGLOBIN 94.5 % (94.0-97.0); BG PCO2 31.5 mmHg (35.0-45.0); BG PH 7.444 (7.350-7.450); BG PO2 75.9 mmHg (75.0-100.0); BG SAMPLE SITE RIGHT RADIAL; BG TOTAL HEMOGLOBIN 11.2 g/dL (12.0-18.0); BG VENT MODE NASAL CANNULA
[2021-09-30] MEDS ORDERED: AMIKACIN 500MG in SODIUM CHLORIDE 0.9% 100ML IV NR (17:00)
[2021-09-30] MEDS: DEXT 5%/0.45% NACL 1000ML 1,000 ML IV SCH (17:43)
[2021-09-30 18:20] LABS: HEMATOCRIT. 30.2 % (42.0-52.0); MEAN CORPUSCULAR VOLUME 99.9 fL (80.0-94.0); MEAN PLATELET VOLUME 8.7 fl (7.4-10.4); PLATELET 571 x1000/uL (130-400); RED BLOOD CELL COUNT 3.02 mill/uL (4.7-6.1); RED CELL DISTRIBUTION WIDTH 13.5 % (11.6-14.6)
[2021-09-30 19:11] LABS: PLATELET ESTIMATE MARKEDLY INCREASED
[2021-09-30 19:31] LABS: CLARITY URINE CLOUDY (CLEAR); COLOR URINE DARK YELLOW (YELLOW); KETONES URINE TRACE (NEGATIVE); LEUKOCYTE ESTERASE URINE TRACE (NEGATIVE); NITRITE URINE NEGATIVE (NEGATIVE); OCCULT BLOOD URINE NEGATIVE (NEGATIVE); PH URINE 5.5 (4.5-8.0); PROTEIN URINE 4+ (NEGATIVE); SPECIFIC GRAVITY URINE 1.026 (1.005-1.030)
[2021-09-30] MEDS ORDERED: DIATRIZOATE MEGLUMINE 300ML INFUS BTL UR ONE (20:41)
[2021-10-01] VITALS (44 sets, daily range): BP systolic 110–177; BP diastolic 50–114
[2021-10-01] MEDS: BLOOD SUGAR DIAGNOSTIC STRIP TEST SCH ×5 (00:42→23:55)
[2021-10-01] MEDS: VANCOMYCIN 1000MG/20ML ORAL SOLN PO SCH ×4 (00:44→18:00)
[2021-10-01] MEDS: INSULIN LISPRO 100 UNITS/ML SUBCUT SCH ×4 (00:56→19:12)
[2021-10-01] MEDS: HYDRALAZINE 20MG/ML VIAL IV PRN (04:15)
[2021-10-01] MEDS: IPRATROPIUM/ALBUTEROL 0.5-3(2.5)MG/3ML NEB NEB SCH ×4 (04:17→20:43)
[2021-10-01] MEDS: LORAZEPAM 2MG/ML CPJ IV PRN (05:07)
[2021-10-01 06:17] LABS: MEAN CORPUSCULAR HEMOGLOBIN 33.2 pg (28.0-32.0); MEAN CORPUSCULAR VOLUME 99.6 fL (80.0-94.0); MEAN PLATELET VOLUME 8.5 fl (7.4-10.4); PLATELET 569 x1000/uL (130-400); RED BLOOD CELL COUNT 3.01 mill/uL (4.7-6.1); RED CELL DISTRIBUTION WIDTH 13.7 % (11.6-14.6)
[2021-10-01] MEDS: HYDRALAZINE HCL 50MG TABLET PO SCH ×3 (06:29→20:50)
[2021-10-01] MEDS: METRONIDAZOLE 250MG TABLET PO SCH (06:29)
[2021-10-01 07:33] LABS: PLATELET ESTIMATE INCREASED
[2021-10-01] MEDS: FAMOTIDINE 20MG/2ML VIAL IV SCH (08:59)
[2021-10-01] MEDS: AMLODIPINE 5MG TABLET PO SCH ×2 (09:00→20:50)
[2021-10-01] MEDS: PREDNISONE 5MG TABLET PO SCH (09:00)
[2021-10-01 10:31] LABS: BG BASE EXCESS -4.8 mmol/L (-2.0-2.0); BG CARBOXYHEMOGLOBIN 0.3 % (0.5-1.5); BG DEOXYHEMOGLOBIN 7.4 % (0.0-5.0); BG FRACTION INSPIRED OXYGEN 28; BG HCO3 ACT 19.5 mmol/L (22.0-26.0); BG METHEMOGLOBIN 0.1 % (0.0-1.5); BG OXYGEN SATURATION 92.6 % (92.0-98.5); BG OXYHEMOGLOBIN 92.2 % (94.0-97.0); BG PCO2 33.5 mmHg (35.0-45.0); BG PH 7.383 (7.350-7.450); BG PO2 69.4 mmHg (75.0-100.0); BG SAMPLE SITE RIGHT BRACHIAL; BG TOTAL HEMOGLOBIN 11.3 g/dL (12.0-18.0); BG VENT MODE NASAL CANNULA
[2021-10-01] MEDS: TACROLIMUS 1MG/PACKET NG SCH (11:00)
[2021-10-01] MEDS: MEROPENEM 1000MG in NORMAL SALINE 100ML IV SCH (14:11)
[2021-10-01 16:51] LABS: BG BASE EXCESS -3.3 mmol/L (-2.0-2.0); BG CARBOXYHEMOGLOBIN 0.3 % (0.5-1.5); BG DEOXYHEMOGLOBIN 7.1 % (0.0-5.0); BG FRACTION INSPIRED OXYGEN 40; BG HCO3 ACT 20.7 mmol/L (22.0-26.0); BG OXYGEN SATURATION 92.9 % (92.0-98.5); BG OXYHEMOGLOBIN 92.6 % (94.0-97.0); BG PCO2 33.7 mmHg (35.0-45.0); BG PH 7.407 (7.350-7.450); BG PO2 67.3 mmHg (75.0-100.0); BG SAMPLE SITE RIGHT RADIAL; BG VENT MODE MASK - BIPAP
[2021-10-01] MEDS: DEXT 5%/0.45% NACL 1000ML 1,000 ML IV SCH (20:08)
[2021-10-01] MEDS: DIPHENHYDRAMINE 50MG/ML VIAL IV PRN (20:50)
[2021-10-01] MEDS: ACETAMINOPHEN 325MG TABLET PO PRN (20:50)
[2021-10-02] VITALS (36 sets, daily range): BP systolic 114–166; BP diastolic 49–96
[2021-10-02] MEDS: VANCOMYCIN 1000MG/20ML ORAL SOLN PO SCH ×4 (00:09→18:28)
[2021-10-02] MEDS: INSULIN LISPRO 100 UNITS/ML SUBCUT SCH ×4 (00:10→18:28)
[2021-10-02] MEDS: LORAZEPAM 2MG/ML CPJ IV PRN ×2 (02:33→23:26)
[2021-10-02] MEDS: IPRATROPIUM/ALBUTEROL 0.5-3(2.5)MG/3ML NEB NEB SCH ×4 (04:26→21:05)
[2021-10-02] MEDS: BLOOD SUGAR DIAGNOSTIC STRIP TEST SCH ×3 (05:45→18:00)
[2021-10-02] MEDS: HYDRALAZINE HCL 50MG TABLET PO SCH ×3 (06:10→22:17)
[2021-10-02 06:11] LABS: HEMATOCRIT. 27.9 % (42.0-52.0); HEMOGLOBIN. 9.4 g/dL (14.0-18.0); MEAN CORPUSCULAR HEMOGLOBIN 33.8 pg (28.0-32.0); MEAN CORPUSCULAR VOLUME 100.5 fL (80.0-94.0); MEAN PLATELET VOLUME 8.4 fl (7.4-10.4); PLATELET 557 x1000/uL (130-400); RED BLOOD CELL COUNT 2.78 mill/uL (4.7-6.1); RED CELL DISTRIBUTION WIDTH 13.6 % (11.6-14.6)
[2021-10-02 07:54] LABS: PLATELET ESTIMATE INCREASED
[2021-10-02] MEDS: FAMOTIDINE 20MG/2ML VIAL IV SCH (09:29)
[2021-10-02] MEDS: PREDNISONE 5MG TABLET PO SCH (09:29)
[2021-10-02] MEDS: TACROLIMUS 1MG/PACKET NG SCH (09:29)
[2021-10-02] MEDS: AMLODIPINE 5MG TABLET PO SCH ×2 (09:29→22:17)
[2021-10-02 11:27] LABS: BG BASE EXCESS -4.7 mmol/L (-2.0-2.0); BG CARBOXYHEMOGLOBIN 0.3 % (0.5-1.5); BG DEOXYHEMOGLOBIN 3.3 % (0.0-5.0); BG FRACTION INSPIRED OXYGEN 40; BG HCO3 ACT 19.8 mmol/L (22.0-26.0); BG METHEMOGLOBIN 0.1 % (0.0-1.5); BG OXYGEN SATURATION 96.7 % (92.0-98.5); BG OXYHEMOGLOBIN 96.3 % (94.0-97.0); BG PCO2 34.7 mmHg (35.0-45.0); BG PH 7.375 (7.350-7.450); BG SAMPLE SITE RIGHT RADIAL; BG TOTAL HEMOGLOBIN 10.3 g/dL (12.0-18.0); BG VENT MODE NASAL CANNULA
[2021-10-02] MEDS: MEROPENEM 1000MG in NORMAL SALINE 100ML IV SCH (13:55)
[2021-10-02] MEDS: DIPHENHYDRAMINE 50MG/ML VIAL IV PRN (22:16)
[2021-10-02] MEDS: ACETAMINOPHEN 325MG TABLET PO PRN (22:18)
[2021-10-02] MEDS: DEXT 5%/0.45% NACL 1000ML 1,000 ML IV SCH (22:19)
[2021-10-03] VITALS (40 sets, daily range): BP systolic 112–170; BP diastolic 31–131
[2021-10-03] MEDS: IPRATROPIUM/ALBUTEROL 0.5-3(2.5)MG/3ML NEB NEB SCH ×4 (02:02→20:36)
[2021-10-03] MEDS: VANCOMYCIN 1000MG/20ML ORAL SOLN PO SCH ×5 (02:12→23:13)
[2021-10-03] MEDS: LORAZEPAM 2MG/ML CPJ IV PRN ×3 (04:48→22:00)
[2021-10-03] MEDS: HYDRALAZINE HCL 50MG TABLET PO SCH ×3 (05:42→21:22)
[2021-10-03 06:12] LABS: HEMATOCRIT. 30.2 % (42.0-52.0); HEMOGLOBIN. 9.9 g/dL (14.0-18.0); MEAN CORPUSCULAR HEMOGLOBIN 32.6 pg (28.0-32.0); MEAN CORPUSCULAR VOLUME 99.4 fL (80.0-94.0); MEAN PLATELET VOLUME 8.4 fl (7.4-10.4); PLATELET 611 x1000/uL (130-400); RED BLOOD CELL COUNT 3.04 mill/uL (4.7-6.1); RED CELL DISTRIBUTION WIDTH 13.8 % (11.6-14.6)
[2021-10-03 07:31] LABS: PLATELET ESTIMATE INCREASED
[2021-10-03] MEDS: PREDNISONE 5MG TABLET PO SCH (09:43)
[2021-10-03] MEDS: FAMOTIDINE 20MG/2ML VIAL IV SCH (09:43)
[2021-10-03] MEDS: AMLODIPINE 5MG TABLET PO SCH ×2 (09:44→21:23)
[2021-10-03] MEDS: TACROLIMUS 1MG/PACKET NG SCH (09:44)
[2021-10-03 11:00] LABS: BG BASE EXCESS 2.3 mmol/L (-2.0-2.0); BG CARBOXYHEMOGLOBIN 0.3 % (0.5-1.5); BG DEOXYHEMOGLOBIN 4.2 % (0.0-5.0); BG FRACTION INSPIRED OXYGEN 36; BG HCO3 ACT 25.4 mmol/L (22.0-26.0); BG METHEMOGLOBIN 0.2 % (0.0-1.5); BG OXYGEN SATURATION 95.8 % (92.0-98.5); BG OXYHEMOGLOBIN 95.3 % (94.0-97.0); BG PCO2 34.2 mmHg (35.0-45.0); BG PH 7.489 (7.350-7.450); BG PO2 83.3 mmHg (75.0-100.0); BG SAMPLE SITE RIGHT RADIAL; BG TOTAL HEMOGLOBIN 11.1 g/dL (12.0-18.0); BG VENT MODE NASAL CANNULA
[2021-10-03] MEDS: INSULIN LISPRO 100 UNITS/ML SUBCUT SCH ×4 (12:00→23:38)
[2021-10-03] MEDS: BLOOD SUGAR DIAGNOSTIC STRIP TEST SCH ×4 (12:54→23:14)
[2021-10-03] MEDS: MEROPENEM 1000MG in NORMAL SALINE 100ML IV SCH (14:14)
[2021-10-03] MEDS: HYDRALAZINE 20MG/ML VIAL IV PRN (14:14)
[2021-10-03] MEDS: DEXT 5%/0.45% NACL 1000ML 1,000 ML IV SCH (15:44)
[2021-10-04] VITALS (36 sets, daily range): BP systolic 107–189; BP diastolic 51–84
[2021-10-04] MEDS: DIPHENHYDRAMINE 50MG/ML VIAL IV PRN (00:54)
[2021-10-04] MEDS: IPRATROPIUM/ALBUTEROL 0.5-3(2.5)MG/3ML NEB NEB SCH ×4 (01:15→20:36)
[2021-10-04] MEDS: CLONIDINE 0.1MG TABLET PO PRN (01:38)
[2021-10-04 05:28] LABS: HEMATOCRIT. 31.9 % (42.0-52.0); HEMOGLOBIN. 10.5 g/dL (14.0-18.0); MEAN CORPUSCULAR HEMOGLOBIN 32.6 pg (28.0-32.0); MEAN CORPUSCULAR VOLUME 98.6 fL (80.0-94.0); MEAN PLATELET VOLUME 8.2 fl (7.4-10.4); PLATELET 643 x1000/uL (130-400); RED BLOOD CELL COUNT 3.24 mill/uL (4.7-6.1)
[2021-10-04] MEDS: HYDRALAZINE HCL 50MG TABLET PO SCH ×3 (05:33→23:00)
[2021-10-04] MEDS: BLOOD SUGAR DIAGNOSTIC STRIP TEST SCH ×4 (05:33→23:01)
[2021-10-04] MEDS: VANCOMYCIN 1000MG/20ML ORAL SOLN PO SCH ×4 (05:33→23:00)
[2021-10-04] MEDS: INSULIN LISPRO 100 UNITS/ML SUBCUT SCH ×4 (05:38→23:01)
[2021-10-04] MEDS: TACROLIMUS 1MG/PACKET NG SCH (08:16)
[2021-10-04] MEDS: PREDNISONE 5MG TABLET PO SCH (08:16)
[2021-10-04] MEDS: AMLODIPINE 5MG TABLET PO SCH ×2 (08:16→20:38)
[2021-10-04] MEDS: FAMOTIDINE 20MG/2ML VIAL IV SCH (08:16)
[2021-10-04 08:46] LABS: PLATELET ESTIMATE INCREASED
[2021-10-04] MEDS: LORAZEPAM 2MG/ML CPJ IV PRN (12:36)
[2021-10-04 14:02] LABS: HEPATITIS B SURFACE ANTIGEN NEGATIVE
[2021-10-04] MEDS: MEROPENEM 1000MG in NORMAL SALINE 100ML IV SCH (14:09)
[2021-10-04] MEDS ORDERED: NALOXONE HCL 0.4MG/ML VIAL IV PRN (15:15)
[2021-10-04] MEDS ORDERED: MORPHINE SULFATE 2 MG/ML CPJ (NOT FOR IM USE) IV PRN (15:15)
[2021-10-04] MEDS: METRONIDAZOLE 250MG TABLET PO SCH ×2 (16:04→20:39)
[2021-10-04] MEDS: DEXT 5%/0.45% NACL 1000ML 1,000 ML IV SCH (16:05)
[2021-10-04] MEDS: CEFTAZIDIME PENTAHYDRATE 1 G in DEXTROSE 5% WATER 50 ML IV SCH (16:45)
[2021-10-05] VITALS (11 sets, daily range): BP systolic 100–144; BP diastolic 38–70
[2021-10-05] MEDS: DIPHENHYDRAMINE 50MG/ML VIAL IV PRN (01:57)
[2021-10-05] MEDS: IPRATROPIUM/ALBUTEROL 0.5-3(2.5)MG/3ML NEB NEB SCH ×4 (02:06→20:24)
[2021-10-05] MEDS: LORAZEPAM 2MG/ML CPJ IV PRN (02:35)
[2021-10-05] MEDS: VANCOMYCIN 1000MG/20ML ORAL SOLN PO SCH ×2 (05:55→12:04)
[2021-10-05] MEDS: METRONIDAZOLE 250MG TABLET PO SCH ×3 (05:55→21:32)
[2021-10-05] MEDS: HYDRALAZINE HCL 50MG TABLET PO SCH ×3 (05:56→21:32)
[2021-10-05] MEDS: INSULIN LISPRO 100 UNITS/ML SUBCUT SCH ×3 (06:00→18:25)
[2021-10-05] MEDS: BLOOD SUGAR DIAGNOSTIC STRIP TEST SCH ×3 (06:06→17:47)
[2021-10-05 06:59] LABS: HEMATOCRIT. 28.1 % (42.0-52.0); HEMOGLOBIN. 9.3 g/dL (14.0-18.0); MEAN CORPUSCULAR HEMOGLOBIN 32.8 pg (28.0-32.0); RED BLOOD CELL COUNT 2.84 mill/uL (4.7-6.1); RED CELL DISTRIBUTION WIDTH 14.1 % (11.6-14.6)
[2021-10-05 07:44] LABS: PLATELET ESTIMATE INCREASED
[2021-10-05] MEDS: PREDNISONE 5MG TABLET PO SCH (09:09)
[2021-10-05] MEDS: AMLODIPINE 5MG TABLET PO SCH ×2 (09:09→21:32)
[2021-10-05] MEDS: FAMOTIDINE 20MG/2ML VIAL IV SCH (09:09)
[2021-10-05] MEDS: TACROLIMUS 1MG/PACKET NG SCH (10:47)
[2021-10-05] MEDS: ACETAMINOPHEN 325MG TABLET PO PRN (12:33)
[2021-10-05] MEDS: DORZOLAMIDE 2% OPHTH 10 ML BOTTLE RIGHTEYE SCH ×2 (15:44→21:32)
[2021-10-05] MEDS: CEFTAZIDIME PENTAHYDRATE 1 G in DEXTROSE 5% WATER 50 ML IV SCH (18:24)
[2021-10-06] VITALS: BP 145/58
[2021-10-06] MEDS: ACETAMINOPHEN 325MG TABLET PO PRN (01:54)
[2021-10-06 04:00] VITALS: BP 149/66
[2021-10-06] MEDS: IPRATROPIUM/ALBUTEROL 0.5-3(2.5)MG/3ML NEB NEB SCH ×4 (05:00→21:05)
[2021-10-06] MEDS: HYDRALAZINE HCL 50MG TABLET PO SCH ×3 (05:15→22:00)
[2021-10-06] MEDS: DORZOLAMIDE 2% OPHTH 10 ML BOTTLE RIGHTEYE SCH ×3 (05:15→21:34)
[2021-10-06] MEDS: METRONIDAZOLE 250MG TABLET PO SCH ×3 (05:15→21:34)
[2021-10-06 06:20] LABS: HEMATOCRIT. 31.5 % (42.0-52.0); HEMOGLOBIN. 10.6 g/dL (14.0-18.0); MEAN CORPUSCULAR HEMOGLOBIN 33.4 pg (28.0-32.0); MEAN CORPUSCULAR VOLUME 98.8 fL (80.0-94.0); MEAN PLATELET VOLUME 8.1 fl (7.4-10.4); PLATELET 537 x1000/uL (130-400); RED BLOOD CELL COUNT 3.18 mill/uL (4.7-6.1); RED CELL DISTRIBUTION WIDTH 14.3 % (11.6-14.6)
[2021-10-06] MEDS: BLOOD SUGAR DIAGNOSTIC STRIP TEST SCH ×4 (06:42→21:34)
[2021-10-06] MEDS ORDERED: INSULIN LISPRO 100 UNITS/ML SUBCUT SCH (07:20)
[2021-10-06] MEDS: INSULIN LISPRO 100 UNITS/ML SUBCUT SCH ×4 (07:50→21:00)
[2021-10-06 08:00] VITALS: BP 155/64
[2021-10-06] MEDS: FAMOTIDINE 20MG/2ML VIAL IV SCH (08:21)
[2021-10-06] MEDS: PREDNISONE 5MG TABLET PO SCH (08:22)
[2021-10-06] MEDS: AMLODIPINE 5MG TABLET PO SCH ×2 (08:23→21:34)
[2021-10-06] MEDS: TACROLIMUS 1MG/PACKET NG SCH (08:23)
[2021-10-06 08:36] LABS: PLATELET ESTIMATE INCREASED
[2021-10-06] MEDS ORDERED: LOPERAMIDE HCL 2MG CAPSULE PO NR (15:45)
[2021-10-06] MEDS: LIDOCAINE 5% PATCH TOP SCH (16:04)
[2021-10-06] MEDS: CEFTAZIDIME PENTAHYDRATE 1 G in DEXTROSE 5% WATER 50 ML IV SCH (18:03)
[2021-10-06 20:00] VITALS: BP 128/62
[2021-10-07] VITALS: BP 125/44
[2021-10-07] MEDS: IPRATROPIUM/ALBUTEROL 0.5-3(2.5)MG/3ML NEB NEB SCH ×4 (01:53→21:06)
[2021-10-07] MEDS: DORZOLAMIDE 2% OPHTH 10 ML BOTTLE RIGHTEYE SCH ×3 (06:26→21:01)
[2021-10-07] MEDS: METRONIDAZOLE 250MG TABLET PO SCH ×3 (06:35→21:00)
[2021-10-07] MEDS: BLOOD SUGAR DIAGNOSTIC STRIP TEST SCH ×4 (06:36→21:00)
[2021-10-07] MEDS: HYDRALAZINE HCL 50MG TABLET PO SCH ×3 (06:36→21:00)
[2021-10-07 07:14] LABS: HEMATOCRIT. 31.3 % (42.0-52.0); HEMOGLOBIN. 10.3 g/dL (14.0-18.0); MEAN CORPUSCULAR VOLUME 100.4 fL (80.0-94.0); MEAN PLATELET VOLUME 8.2 fl (7.4-10.4); PLATELET 515 x1000/uL (130-400); RED BLOOD CELL COUNT 3.12 mill/uL (4.7-6.1); RED CELL DISTRIBUTION WIDTH 13.8 % (11.6-14.6)
[2021-10-07 07:55] VITALS: BP 143/58
[2021-10-07] MEDS: LIDOCAINE 5% PATCH TOP SCH (09:00)
[2021-10-07] MEDS: FAMOTIDINE 20MG TABLET PO SCH (09:00)
[2021-10-07 09:14] LABS: PLATELET ESTIMATE INCREASED
[2021-10-07] MEDS: AMLODIPINE 5MG TABLET PO SCH ×2 (09:59→21:00)
[2021-10-07] MEDS: PREDNISONE 5MG TABLET PO SCH (10:00)
[2021-10-07] MEDS: TACROLIMUS 1MG/PACKET NG SCH (10:00)
[2021-10-07] MEDS: INSULIN LISPRO 100 UNITS/ML SUBCUT SCH ×4 (10:02→21:07)
[2021-10-07 12:14] VITALS: BP 144/66
[2021-10-07 16:20] VITALS: BP 154/54
[2021-10-07 16:47] LABS: HEPATITIS B SURFACE ANTIGEN NEGATIVE
[2021-10-07] MEDS: CEFTAZIDIME PENTAHYDRATE 1 G in DEXTROSE 5% WATER 50 ML IV SCH (19:17)
[2021-10-07 20:00] VITALS: BP 124/42
[2021-10-08] VITALS: BP 151/56
[2021-10-08] MEDS: IPRATROPIUM/ALBUTEROL 0.5-3(2.5)MG/3ML NEB NEB SCH ×4 (01:31→21:31)
[2021-10-08 03:43] VITALS: BP 147/62
[2021-10-08] MEDS: HYDRALAZINE HCL 50MG TABLET PO SCH ×3 (06:39→22:04)
[2021-10-08] MEDS: DORZOLAMIDE 2% OPHTH 10 ML BOTTLE RIGHTEYE SCH ×3 (06:39→22:04)
[2021-10-08] MEDS: INSULIN LISPRO 100 UNITS/ML SUBCUT SCH ×4 (06:39→21:00)
[2021-10-08] MEDS: METRONIDAZOLE 250MG TABLET PO SCH ×3 (06:39→22:40)
[2021-10-08] MEDS: BLOOD SUGAR DIAGNOSTIC STRIP TEST SCH ×4 (06:39→21:00)
[2021-10-08 08:00] VITALS: BP 154/69
[2021-10-08] MEDS: FAMOTIDINE 20MG TABLET PO SCH (08:52)
[2021-10-08] MEDS: PREDNISONE 5MG TABLET PO SCH (08:52)
[2021-10-08] MEDS: AMLODIPINE 5MG TABLET PO SCH ×2 (08:52→22:03)
[2021-10-08] MEDS: LIDOCAINE 5% PATCH TOP SCH (08:53)
[2021-10-08 12:00] VITALS: BP 147/72
[2021-10-08 16:00] VITALS: BP 139/62
[2021-10-08] MEDS: CEFTAZIDIME PENTAHYDRATE 1 G in DEXTROSE 5% WATER 50 ML IV SCH (17:49)
[2021-10-08 20:00] VITALS: BP 148/62
[2021-10-09] VITALS: BP 143/54
[2021-10-09] MEDS: IPRATROPIUM/ALBUTEROL 0.5-3(2.5)MG/3ML NEB NEB SCH ×4 (01:37→20:25)
[2021-10-09 04:00] VITALS: BP 143/51
[2021-10-09] MEDS: HYDRALAZINE HCL 50MG TABLET PO SCH ×3 (05:32→22:26)
[2021-10-09] MEDS: METRONIDAZOLE 250MG TABLET PO SCH ×2 (05:32→14:19)
[2021-10-09] MEDS: DORZOLAMIDE 2% OPHTH 10 ML BOTTLE RIGHTEYE SCH ×3 (05:33→22:26)
[2021-10-09 06:22] LABS: HEMATOCRIT. 30.3 % (42.0-52.0); HEMOGLOBIN. 10.1 g/dL (14.0-18.0); MEAN CORPUSCULAR HEMOGLOBIN 32.7 pg (28.0-32.0); MEAN CORPUSCULAR VOLUME 98.6 fL (80.0-94.0); PLATELET 436 x1000/uL (130-400); RED BLOOD CELL COUNT 3.07 mill/uL (4.7-6.1); RED CELL DISTRIBUTION WIDTH 14.1 % (11.6-14.6)
[2021-10-09] MEDS: BLOOD SUGAR DIAGNOSTIC STRIP TEST SCH ×4 (07:20→21:00)
[2021-10-09] MEDS: INSULIN LISPRO 100 UNITS/ML SUBCUT SCH ×4 (07:50→22:25)
[2021-10-09 08:00] VITALS: BP 145/60
[2021-10-09] MEDS: FAMOTIDINE 20MG TABLET PO SCH (08:37)
[2021-10-09] MEDS: PREDNISONE 5MG TABLET PO SCH (08:38)
[2021-10-09] MEDS: AMLODIPINE 5MG TABLET PO SCH ×2 (08:38→22:27)
[2021-10-09] MEDS: LIDOCAINE 5% PATCH TOP SCH (08:39)
[2021-10-09 12:00] VITALS: BP 142/64
[2021-10-09 13:13] LABS: BG BASE EXCESS 1.5 mmol/L (-2.0-2.0); BG CARBOXYHEMOGLOBIN 0.3 % (0.5-1.5); BG DEOXYHEMOGLOBIN 16.4 % (0.0-5.0); BG FRACTION INSPIRED OXYGEN 21; BG METHEMOGLOBIN 0.3 % (0.0-1.5); BG OXYGEN SATURATION 83.5 % (92.0-98.5); BG PCO2 40.5 mmHg (35.0-45.0); BG PH 7.425 (7.350-7.450); BG PO2 47.4 mmHg (75.0-100.0); BG SAMPLE SITE RIGHT BRACHIAL; BG TOTAL HEMOGLOBIN 11.1 g/dL (12.0-18.0); BG VENT MODE ROOM AIR
[2021-10-09] MEDS: ACETAMINOPHEN 325MG TABLET PO PRN (14:20)
[2021-10-09] MEDS ORDERED: IPRA3AMP9 NEB (14:39)
[2021-10-09] MEDS ORDERED: METR500T PO (14:39)
[2021-10-09] MEDS ORDERED: AMLO10TA4 MT (14:39)
[2021-10-09] MEDS ORDERED: HYDR-4135 PO (14:39)
[2021-10-09 16:00] VITALS: BP 138/62
[2021-10-09 17:12] LABS: PLATELET ESTIMATE INCREASED
[2021-10-09] MEDS: CEFTAZIDIME PENTAHYDRATE 1 G in DEXTROSE 5% WATER 50 ML IV SCH (17:43)
[2021-10-09 20:00] VITALS: BP 144/61
[2021-10-10] VITALS: BP 139/68
[2021-10-10] MEDS: IPRATROPIUM/ALBUTEROL 0.5-3(2.5)MG/3ML NEB NEB SCH ×3 (02:06→14:53)
[2021-10-10 04:00] VITALS: BP 129/55
[2021-10-10] MEDS: HYDRALAZINE HCL 50MG TABLET PO SCH ×3 (06:00→22:19)
[2021-10-10] MEDS: DORZOLAMIDE 2% OPHTH 10 ML BOTTLE RIGHTEYE SCH ×3 (06:35→22:18)
[2021-10-10] MEDS: BLOOD SUGAR DIAGNOSTIC STRIP TEST SCH ×4 (06:38→21:00)
[2021-10-10] MEDS: INSULIN LISPRO 100 UNITS/ML SUBCUT SCH ×4 (07:50→21:00)
[2021-10-10 08:00] VITALS: BP_SYST 125; BP_SYST 145; BP_DIAS 58
[2021-10-10] MEDS: FAMOTIDINE 20MG TABLET PO SCH (08:45)
[2021-10-10] MEDS: AMLODIPINE 5MG TABLET PO SCH ×2 (08:46→22:18)
[2021-10-10] MEDS: PREDNISONE 5MG TABLET PO SCH (08:46)
[2021-10-10] MEDS: LIDOCAINE 5% PATCH TOP SCH (08:47)
[2021-10-10 10:44] LABS: HEMATOCRIT. 30.1 % (42.0-52.0); HEMOGLOBIN. 10.1 g/dL (14.0-18.0); MEAN CORPUSCULAR HEMOGLOBIN 32.9 pg (28.0-32.0); MEAN CORPUSCULAR VOLUME 98.1 fL (80.0-94.0); PLATELET 367 x1000/uL (130-400); RED BLOOD CELL COUNT 3.06 mill/uL (4.7-6.1); RED CELL DISTRIBUTION WIDTH 14.2 % (11.6-14.6)
[2021-10-10 12:00] VITALS: BP 138/60
[2021-10-10] MEDS: METRONIDAZOLE 250MG TABLET PO SCH ×2 (14:36→22:18)
[2021-10-10 15:59] VITALS: BP 141/62
[2021-10-10] MEDS ORDERED: CEFTAZIDIME PENTAHYDRATE 1 G in DEXTROSE 5% WATER 50 ML IV SCH (18:00)
[2021-10-10 19:50] LABS: PLATELET ESTIMATE NORMAL
[2021-10-10 20:00] VITALS: BP 129/66
[2021-10-10 20:11] LABS: INR 1.1; PARTIAL THROMBOPLASTIN TIME 34.3 sec (23.4-31.0)
[2021-10-11] VITALS: BP 140/53
[2021-10-11] MEDS: IPRATROPIUM/ALBUTEROL 0.5-3(2.5)MG/3ML NEB NEB SCH ×3 (02:41→13:52)
[2021-10-11 04:00] VITALS: BP 140/57
[2021-10-11] MEDS: DORZOLAMIDE 2% OPHTH 10 ML BOTTLE RIGHTEYE SCH ×2 (05:53→16:19)
[2021-10-11] MEDS: HYDRALAZINE HCL 50MG TABLET PO SCH ×2 (05:53→16:19)
[2021-10-11] MEDS: METRONIDAZOLE 250MG TABLET PO SCH ×2 (05:53→16:25)
[2021-10-11] MEDS: INSULIN LISPRO 100 UNITS/ML SUBCUT SCH ×3 (07:20→17:38)
[2021-10-11] MEDS: BLOOD SUGAR DIAGNOSTIC STRIP TEST SCH ×3 (07:20→17:33)
[2021-10-11 07:30] LABS: HEMATOCRIT. 31.5 % (42.0-52.0); HEMOGLOBIN. 10.6 g/dL (14.0-18.0); MEAN CORPUSCULAR HEMOGLOBIN 33.3 pg (28.0-32.0); MEAN CORPUSCULAR VOLUME 99.6 fL (80.0-94.0); MEAN PLATELET VOLUME 8.6 fl (7.4-10.4); PLATELET 363 x1000/uL (130-400); RED BLOOD CELL COUNT 3.17 mill/uL (4.7-6.1)
[2021-10-11 08:00] VITALS: BP 139/63
[2021-10-11] MEDS: FAMOTIDINE 20MG TABLET PO SCH (08:50)
[2021-10-11] MEDS: PREDNISONE 5MG TABLET PO SCH (08:50)
[2021-10-11] MEDS: AMLODIPINE 5MG TABLET PO SCH (08:50)
[2021-10-11] MEDS: LIDOCAINE 5% PATCH TOP SCH (08:50)
[2021-10-11] MEDS ORDERED: SODIUM BICARBONATE 4% (2.4MEQ) 5ML VIAL IV ONE (11:36)
[2021-10-11 12:00] VITALS: BP 138/62
[2021-10-11 13:03] LABS: PLATELET ESTIMATE NORMAL
[2021-10-11 14:30] VITALS: BP 138/62
[2021-10-11 16:00] VITALS: BP 125/60
[2021-10-11 17:01] LABS: HEPATITIS B SURFACE ANTIGEN NEGATIVE
== END 2021-10-11 19:00 | disposition home health service (06) | DRG 853 ==
LOC: ER 19:48 → EDBEDREQ 09-19 00:23 → EDBEDREQDT 09-19 00:23 → EDBEDREQTM 09-19 00:23 → EDBEDREQSVC 09-19 00:23 → MICUSO 09-19 04:36 → CVICU 09-19 23:45 → 5EST 10-04 21:28 → 6WST 10-05 23:00
PROVIDERS: ADMIT Internal Medicine; ATTEND Internal Medicine
PROC: 5A1955Z Respiratory Ventilation, Greater than 96 Consecutive Hours (ICD-10-PCS; principal; 2021-09-19)
PROC: 0BH17EZ Insertion of Endotracheal Airway into Trachea, Via Natural or Artificial Opening (ICD-10-PCS; 2021-09-19)
PROC: 5A1D70Z Performance of Urinary Filtration, Intermittent, Less than 6 Hours Per Day (ICD-10-PCS; 2021-09-19)
PROC: 0FT44ZZ Resection of Gallbladder, Percutaneous Endoscopic Approach (ICD-10-PCS; 2021-09-20)
PROC: 02HV33Z Insertion of Infusion Device into Superior Vena Cava, Percutaneous Approach (ICD-10-PCS; 2021-09-21)
PROC: B548ZZA Ultrasonography of Superior Vena Cava, Guidance (ICD-10-PCS; 2021-09-21)
PROC: 5A1D70Z Performance of Urinary Filtration, Intermittent, Less than 6 Hours Per Day (ICD-10-PCS; 2021-09-21)
PROC: 5A1D70Z Performance of Urinary Filtration, Intermittent, Less than 6 Hours Per Day (ICD-10-PCS; 2021-09-23)
PROC: 5A1D70Z Performance of Urinary Filtration, Intermittent, Less than 6 Hours Per Day (ICD-10-PCS; 2021-09-25)
PROC: 5A1D70Z Performance of Urinary Filtration, Intermittent, Less than 6 Hours Per Day (ICD-10-PCS; 2021-09-27)
PROC: 5A1D70Z Performance of Urinary Filtration, Intermittent, Less than 6 Hours Per Day (ICD-10-PCS; 2021-09-29)
PROC: 5A09457 Assistance with Respiratory Ventilation, 24-96 Consecutive Hours, Continuous Positive Airway Pressure (ICD-10-PCS; 2021-10-01)
PROC: 5A1D70Z Performance of Urinary Filtration, Intermittent, Less than 6 Hours Per Day (ICD-10-PCS; 2021-10-03)
PROC: 5A09357 Assistance with Respiratory Ventilation, Less than 24 Consecutive Hours, Continuous Positive Airway Pressure (ICD-10-PCS; 2021-10-05)
PROC: 5A1D70Z Performance of Urinary Filtration, Intermittent, Less than 6 Hours Per Day (ICD-10-PCS; 2021-10-05)
PROC: 5A1D70Z Performance of Urinary Filtration, Intermittent, Less than 6 Hours Per Day (ICD-10-PCS; 2021-10-07)
PROC: 5A1D70Z Performance of Urinary Filtration, Intermittent, Less than 6 Hours Per Day (ICD-10-PCS; 2021-10-10)
PROC: 0W993ZZ Drainage of Right Pleural Cavity, Percutaneous Approach (ICD-10-PCS; 2021-10-11)
DX: A41.9 Sepsis, unspecified organism (principal); N18.6 End stage renal disease; I50.33 Acute on chronic diastolic (congestive) heart failure; J69.0 Pneumonitis due to inhalation of food and vomit; G93.41 Metabolic encephalopathy; J96.01 Acute respiratory failure with hypoxia; E43 Unspecified severe protein-calorie malnutrition; J84.9 Interstitial pulmonary disease, unspecified; I31.3 Pericardial effusion (noninflammatory); R18.8 Other ascites; Z99.11 Dependence on respirator [ventilator] status; N02.8 Recurrent and persistent hematuria with other morphologic changes; N12 Tubulo-interstitial nephritis, not specified as acute or chronic; K80.12 Calculus of gallbladder with acute and chronic cholecystitis without obstruction; T86.12 Kidney transplant failure; T86.19 Other complication of kidney transplant; J91.8 Pleural effusion in other conditions classified elsewhere; E78.5 Hyperlipidemia, unspecified; K82.A1 Gangrene of gallbladder in cholecystitis; M48.02 Spinal stenosis, cervical region; D75.839 Thrombocytosis, unspecified; E11.22 Type 2 diabetes mellitus with diabetic chronic kidney disease; I11.0 Hypertensive heart disease with heart failure; D64.9 Anemia, unspecified; N40.0 Benign prostatic hyperplasia without lower urinary tract symptoms; D75.89 Other specified diseases of blood and blood-forming organs; K56.41 Fecal impaction; M47.812 Spondylosis without myelopathy or radiculopathy, cervical region; Z20.822 Contact with and (suspected) exposure to COVID-19; Y83.0 Surgical operation with transplant of whole organ as the cause of abnormal reaction of the patient, or of later complication, without mention of misadventure at the time of the procedure; E11.65 Type 2 diabetes mellitus with hyperglycemia; E11.649 Type 2 diabetes mellitus with hypoglycemia without coma; K76.9 Liver disease, unspecified; R16.0 Hepatomegaly, not elsewhere classified; Z99.2 Dependence on renal dialysis; Z79.899 Other long term (current) drug therapy; Y92.89 Other specified places as the place of occurrence of the external cause; Z68.21 Body mass index [BMI] 21.0-21.9, adult
CPT/HCPCS: 32555; 36415; 36600; 71045; 72141; 74176; 74177; 76700; 76937; 78227; 80048; 80053; 80197; 80202; 80305; 81003; 82040; 82375; 82550; 82553; 82805; 82962; 83605; 83615; 83880; 84145; 84443; 84478; 84484; 85025; 86705; 86706; 86709; 86803; 86850; 86900; 87070; 87075; 87340; 87426; 88304; 92610; 93005; 93306; 93970; 94002; 94003; 94640; 94660; 97110; 97116; 97162; 97530; 99291; A6261; A9537; C1725; J0278; J0360; J0713; J1100; J1170; J1200; J1815; J1956; J2060; J2185; J2250; J2270; J2543; J2704; J3010; J3370; J3480; J3490; J7030; J7040; J7050; J7060; J7507; J7512; Q9958; U0003; U0005; A4315

== ENCOUNTER 2022-01-03 15:00 | Inpatient (IN) | payer BC, MEDICARE ==
[~2022-01-03] VITALS: Ht 170.2 cm; Wt 68.9 kg
[~2022-01-03 15:00] MED LIST changes: +AMLO10TA4 MT; +BUME2TAB7 PO; +DOCU-138 MT; -ETOMIDATE 2MG/ML 10ML VIAL IV ONE; +FINA5TAB11 MT; +HYDR-4135 PO; +INSU100I45; +IPRA3AMP9 NEB; -LEVO250T58 MT; +LIDO700A30 TP; +METR500T PO; +POLY17PO3 MT; +PRED5TAB MT; +PROT40 MT; +SIMV-43 MT; -SODIUM CHLORIDE 0.9% 10ML VIAL ONE; +TACR5CAP PO; +TAMS-11 MT; +TRAM50TA94 MT; -VECURONIUM BROMIDE 10 MG/VIAL IV ONE
[2022-01-03 15:48] LABS: HEMATOCRIT. 27.7 % (42.0-52.0); HEMOGLOBIN. 8.8 g/dL (14.0-18.0); MEAN CORPUSCULAR VOLUME 94.3 fL (80.0-94.0); MEAN PLATELET VOLUME 7.5 fl (7.4-10.4); PLATELET 345 x1000/uL (130-400); RED BLOOD CELL COUNT 2.94 mill/uL (4.7-6.1)
[2022-01-03 15:54] LABS: CHLORIDE 106 mEq/L (98-107)
[2022-01-03 16:25] LABS: PLATELET ESTIMATE NORMAL
[2022-01-03] MEDS ORDERED: ALBUTEROL (0.083%) 2.5MG/3ML NEB HHN NR (18:15)
[2022-01-03] MEDS ORDERED: INSULIN REGULAR (HUMULIN R) 300UNITS/3ML VIAL IV ONE (18:15)
[2022-01-03] MEDS ORDERED: DEXTROSE 50% WATER 50ML SYRINGE IV ONE (18:15)
[2022-01-03] MEDS ORDERED: VANCOMYCIN 1G PREMIX 200 ML IV NR (18:15)
[2022-01-03] MEDS ORDERED: PIPERACILLIN/TAZ 3.375G PREMIX 50 ML IV ONE (18:15)
[2022-01-03] MEDS ORDERED: VANCOMYCIN 1G PREMIX 200 ML IV ONE (18:15)
[2022-01-03] MEDS ORDERED: CALCIUM CHLORIDE 1GM/10ML SYR IV ONE (18:15)
[2022-01-03] MEDS ORDERED: ALBUTEROL (0.083%) 2.5MG/3ML NEB HHN ONE (18:15)
[2022-01-03] MEDS ORDERED: PIPERACILLIN/TAZ 3.375G PREMIX 50 ML IV NR (18:15)
[2022-01-04] VITALS (80 sets, daily range): BP systolic 86–164; BP diastolic 51–91
[2022-01-04] MEDS ORDERED: SODIUM BICARBONATE 8.4% 1 MEQ/ML 50ML SYR IV SCH (01:45)
[2022-01-04] MEDS ORDERED: METHYLPREDNISOLONE SOD SUCC 40 MG/ML VIAL IV SCH (01:45)
[2022-01-04] MEDS ORDERED: DEXTROSE 50% WATER 50ML SYRINGE IV PRN ×2 (02:00→06:15)
[2022-01-04 02:11] LABS: BG BASE EXCESS -10.9 mmol/L (-2.0-2.0); BG CARBOXYHEMOGLOBIN 0.3 % (0.5-1.5); BG DEOXYHEMOGLOBIN 9.3 % (0.0-5.0); BG FRACTION INSPIRED OXYGEN 40; BG HCO3 ACT 15.6 mmol/L (22.0-26.0); BG METHEMOGLOBIN 0.3 % (0.0-1.5); BG OXYGEN SATURATION 90.6 % (92.0-98.5); BG OXYHEMOGLOBIN 90.1 % (94.0-97.0); BG PCO2 37.6 mmHg (35.0-45.0); BG PH 7.237 (7.350-7.450); BG PO2 70.7 mmHg (75.0-100.0); BG SAMPLE SITE LEFT RADIAL; BG TOTAL HEMOGLOBIN 9.2 g/dL (12.0-18.0); BG TOTAL RESPIRATORY RATE 27 b/min; BG VENT MODE MASK - BIPAP
[2022-01-04] MEDS: BLOOD SUGAR DIAGNOSTIC STRIP TEST SCH ×8 (02:34→20:57)
[2022-01-04] MEDS ORDERED: VANCOMYCIN 1G PREMIX 200 ML IV SCH (03:00)
[2022-01-04] MEDS ORDERED: ONDANSETRON HCL 4MG/2ML INJ IV PRN (03:00)
[2022-01-04] MEDS: HEPARIN 5000 UNITS/ML VIAL SUBCUT SCH ×3 (03:14→21:01)
[2022-01-04] MEDS ORDERED: SODIUM POLYSTYRENE SULFONATE 15 G/60 ML BOT PO SCH ×2 (03:30→09:30)
[2022-01-04] MEDS: IPRATROPIUM/ALBUTEROL 0.5-3(2.5)MG/3ML NEB HHN SCH ×5 (05:23→20:13)
[2022-01-04] MEDS: INSULIN LISPRO 100 UNITS/ML SUBCUT SCH ×4 (06:17→21:02)
[2022-01-04 06:18] LABS: HEMATOCRIT. 27.2 % (42.0-52.0); HEMOGLOBIN. 8.6 g/dL (14.0-18.0); MEAN CORPUSCULAR VOLUME 95.4 fL (80.0-94.0); MEAN PLATELET VOLUME 8.2 fl (7.4-10.4); PLATELET 336 x1000/uL (130-400); RED BLOOD CELL COUNT 2.85 mill/uL (4.7-6.1); RED CELL DISTRIBUTION WIDTH 16.4 % (11.6-14.6)
[2022-01-04] MEDS: PIPERACILLIN/TAZOBACTAM 3.375 G in DEXTROSE 5% WATER 50 ML IV SCH ×3 (06:41→21:01)
[2022-01-04] MEDS ORDERED: CALCIUM CHLORIDE 1GM/10ML SYR IV NR (07:15)
[2022-01-04] MEDS ORDERED: DEXTROSE 50% WATER 50ML SYRINGE IV NR (07:30)
[2022-01-04] MEDS ORDERED: INSULIN REGULAR (HUMULIN R) 300UNITS/3ML VIAL IV NR (07:30)
[2022-01-04 08:14] LABS: INR 1.1; PROTHROMBIN TIME 11.8 sec (9.6-11.0)
[2022-01-04] MEDS: PANTOPRAZOLE SODIUM 40 MG/VIAL IV SCH (08:14)
[2022-01-04] MEDS: METHYLPREDNISOLONE SOD SUCC 40 MG/ML VIAL IV SCH (08:15)
[2022-01-04 08:26] LABS: BG BASE EXCESS -12.5 mmol/L (-2.0-2.0); BG CARBOXYHEMOGLOBIN 0.3 % (0.5-1.5); BG DEOXYHEMOGLOBIN 7.1 % (0.0-5.0); BG HCO3 ACT 14.4 mmol/L (22.0-26.0); BG METHEMOGLOBIN 1.3 % (0.0-1.5); BG OXYGEN SATURATION 92.8 % (92.0-98.5); BG OXYHEMOGLOBIN 91.3 % (94.0-97.0); BG PCO2 36.6 mmHg (35.0-45.0); BG PH 7.212 (7.350-7.450); BG PO2 81.8 mmHg (75.0-100.0); BG SAMPLE SITE RIGHT RADIAL; BG TOTAL HEMOGLOBIN 9.5 g/dL (12.0-18.0)
[2022-01-04 08:35] LABS: BG FRACTION INSPIRED OXYGEN 50; BG VENT MODE BIPAP; BG VENT RATE 24 set
[2022-01-04 08:37] LABS: BG BILEVEL POS AIRWAY PRESSURE 18/5
[2022-01-04] MEDS ORDERED: LIDOCAINE HCL 1% 10 MG/ML 10ML VIAL ONE ×2 (09:03→14:52)
[2022-01-04 09:27] LABS: HEPATITIS B SURFACE ANTIGEN NEGATIVE
[2022-01-04] MEDS ORDERED: SODIUM BICARBONATE 8.4% 1 MEQ/ML 50ML SYR IV NR (11:15)
[2022-01-04] MEDS ORDERED: DIAZEPAM 5 MG/ML 2ML CPJ IV NR (12:00)
[2022-01-04 12:56] LABS: PLATELET ESTIMATE NORMAL
[2022-01-04 13:23] LABS: BG CARBOXYHEMOGLOBIN 0.3 % (0.5-1.5); BG DEOXYHEMOGLOBIN 7.5 % (0.0-5.0); BG FRACTION INSPIRED OXYGEN 60; BG HCO3 ACT 16.5 mmol/L (22.0-26.0); BG METHEMOGLOBIN 0.3 % (0.0-1.5); BG OXYGEN SATURATION 92.5 % (92.0-98.5); BG OXYHEMOGLOBIN 91.9 % (94.0-97.0); BG PCO2 38.7 mmHg (35.0-45.0); BG PH 7.248 (7.350-7.450); BG PO2 78.1 mmHg (75.0-100.0); BG SAMPLE SITE RIGHT RADIAL; BG TOTAL HEMOGLOBIN 9.8 g/dL (12.0-18.0); BG VENT MODE MASK - BIPAP
[2022-01-04] MEDS: PROPOFOL 10MG/ML 100ML 100 ML IV PRN (15:31)
[2022-01-04 16:26] LABS: BG BASE EXCESS -14.3 mmol/L (-2.0-2.0); BG CARBOXYHEMOGLOBIN 0.3 % (0.5-1.5); BG DEOXYHEMOGLOBIN 12.4 % (0.0-5.0); BG FRACTION INSPIRED OXYGEN 60; BG HCO3 ACT 14.6 mmol/L (22.0-26.0); BG METHEMOGLOBIN 0.5 % (0.0-1.5); BG OXYGEN SATURATION 87.5 % (92.0-98.5); BG OXYHEMOGLOBIN 86.8 % (94.0-97.0); BG PCO2 46.7 mmHg (35.0-45.0); BG PH 7.112 (7.350-7.450); BG PO2 73.5 mmHg (75.0-100.0); BG SAMPLE SITE RIGHT RADIAL; BG TOTAL HEMOGLOBIN 10.6 g/dL (12.0-18.0); BG VENT MODE VENT - AC
[2022-01-04] MEDS: SODIUM BICARBONATE 8.4% 1 MEQ/ML 50ML SYR IV NR ×2 (16:58→17:02)
[2022-01-04] MEDS ORDERED: NOREPINEPHRINE 8 MG in DEXT 5% WATER 242 ML IV PRN ×4 (19:00)
[2022-01-04 21:36] LABS: BG CARBOXYHEMOGLOBIN 0.8 % (0.5-1.5); BG DEOXYHEMOGLOBIN 22.8 % (0.0-5.0); BG FRACTION INSPIRED OXYGEN 70; BG HCO3 ACT 24.9 mmol/L (22.0-26.0); BG METHEMOGLOBIN 0.3 % (0.0-1.5); BG OXYGEN SATURATION 76.9 % (92.0-98.5); BG OXYHEMOGLOBIN 76.1 % (94.0-97.0); BG PCO2 47.4 mmHg (35.0-45.0); BG PH 7.339 (7.350-7.450); BG PO2 44.7 mmHg (75.0-100.0); BG SAMPLE SITE RIGHT RADIAL; BG TOTAL HEMOGLOBIN 9.2 g/dL (12.0-18.0); BG VENT MODE VENT - AC
[2022-01-05] VITALS (63 sets, daily range): BP systolic 101–143; BP diastolic 46–72
[2022-01-05] MEDS: IPRATROPIUM/ALBUTEROL 0.5-3(2.5)MG/3ML NEB HHN SCH ×6 (00:34→20:41)
[2022-01-05] MEDS: INSULIN LISPRO 100 UNITS/ML SUBCUT SCH ×4 (06:53→20:45)
[2022-01-05] MEDS: BLOOD SUGAR DIAGNOSTIC STRIP TEST SCH ×4 (06:53→20:32)
[2022-01-05 08:09] LABS: BG BASE EXCESS -0.9 mmol/L (-2.0-2.0); BG CARBOXYHEMOGLOBIN 0.3 % (0.5-1.5); BG DEOXYHEMOGLOBIN 6.1 % (0.0-5.0); BG HCO3 ACT 23.5 mmol/L (22.0-26.0); BG METHEMOGLOBIN 0.3 % (0.0-1.5); BG OXYGEN SATURATION 93.9 % (92.0-98.5); BG OXYHEMOGLOBIN 93.3 % (94.0-97.0); BG PO2 75.6 mmHg (75.0-100.0); BG SAMPLE SITE RIGHT RADIAL; BG VENT MODE VENT - AC
[2022-01-05] MEDS: PIPERACILLIN/TAZOBACTAM 3.375 G in DEXTROSE 5% WATER 50 ML IV SCH ×2 (08:13→20:43)
[2022-01-05] MEDS: PANTOPRAZOLE SODIUM 40 MG/VIAL IV SCH (08:14)
[2022-01-05] MEDS: METHYLPREDNISOLONE SOD SUCC 40 MG/ML VIAL IV SCH (08:15)
[2022-01-05] MEDS: HEPARIN 5000 UNITS/ML VIAL SUBCUT SCH (08:15)
[2022-01-05] MEDS: PROPOFOL 10MG/ML 100ML 100 ML IV PRN (11:20)
[2022-01-05 13:01] LABS: BG BASE EXCESS -2.7 mmol/L (-2.0-2.0); BG CARBOXYHEMOGLOBIN 0.6 % (0.5-1.5); BG DEOXYHEMOGLOBIN 5.3 % (0.0-5.0); BG FRACTION INSPIRED OXYGEN 60; BG HCO3 ACT 21.9 mmol/L (22.0-26.0); BG METHEMOGLOBIN 0.2 % (0.0-1.5); BG OXYGEN SATURATION 94.7 % (92.0-98.5); BG OXYHEMOGLOBIN 93.9 % (94.0-97.0); BG PCO2 36.6 mmHg (35.0-45.0); BG PH 7.395 (7.350-7.450); BG PO2 82.8 mmHg (75.0-100.0); BG SAMPLE SITE RIGHT RADIAL; BG VENT MODE VENT - AC
[2022-01-05] MEDS ORDERED: VANCOMYCIN 500MG PREMIX 100 ML IV SCH (14:00)
[2022-01-05 14:44] LABS: HEMATOCRIT 22.4 % (42.0-52.0); HEMOGLOBIN 7.4 g/dL (14.0-18.0); MEAN CORPUSCULAR HEMOGLOBIN 30.8 pg (28.0-32.0); MEAN CORPUSCULAR VOLUME 93.2 fL (80.0-94.0); PLATELET 229 x1000/uL (130-400); RED CELL DISTRIBUTION WIDTH 15.7 % (11.6-14.6)
[2022-01-05 16:03] LABS: BG BASE EXCESS -2.9 mmol/L (-2.0-2.0); BG CARBOXYHEMOGLOBIN 0.2 % (0.5-1.5); BG DEOXYHEMOGLOBIN 6.8 % (0.0-5.0); BG HCO3 ACT 22.6 mmol/L (22.0-26.0); BG METHEMOGLOBIN 0.3 % (0.0-1.5); BG OXYGEN SATURATION 93.2 % (92.0-98.5); BG OXYHEMOGLOBIN 92.7 % (94.0-97.0); BG PCO2 41.9 mmHg (35.0-45.0); BG PH 7.349 (7.350-7.450); BG PO2 74.9 mmHg (75.0-100.0); BG SAMPLE SITE RIGHT RADIAL; BG TOTAL HEMOGLOBIN 8.4 g/dL (12.0-18.0); BG VENT MODE VENT - AC
[2022-01-05] MEDS ORDERED: CALCIUM GLUCONATE 100MG/ML 10ML VIAL IV NR (20:00)
[2022-01-05] MEDS: EPOETIN ALFA-EPBX 10,000 UNIT/ML VIAL SUBCUT SCH (21:10)
[2022-01-06] VITALS (84 sets, daily range): BP systolic 123–153; BP diastolic 45–90
[2022-01-06] MEDS: IPRATROPIUM/ALBUTEROL 0.5-3(2.5)MG/3ML NEB HHN SCH ×6 (00:30→20:58)
[2022-01-06] MEDS: PROPOFOL 10MG/ML 100ML 100 ML IV PRN ×2 (05:35→17:05)
[2022-01-06 05:43] LABS: HEMATOCRIT. 23.5 % (42.0-52.0); HEMOGLOBIN. 7.6 g/dL (14.0-18.0); MEAN CORPUSCULAR HEMOGLOBIN 29.9 pg (28.0-32.0); MEAN CORPUSCULAR VOLUME 92.7 fL (80.0-94.0); MEAN PLATELET VOLUME 8.4 fl (7.4-10.4); PLATELET 254 x1000/uL (130-400); RED BLOOD CELL COUNT 2.54 mill/uL (4.7-6.1)
[2022-01-06 05:56] LABS: PHOSPHORUS 6.3 mg/dL (2.5-4.9)
[2022-01-06] MEDS: BLOOD SUGAR DIAGNOSTIC STRIP TEST SCH ×4 (06:49→21:30)
[2022-01-06] MEDS: INSULIN LISPRO 100 UNITS/ML SUBCUT SCH ×4 (06:50→21:00)
[2022-01-06] MEDS: METHYLPREDNISOLONE SOD SUCC 40 MG/ML VIAL IV SCH (08:27)
[2022-01-06] MEDS: PANTOPRAZOLE SODIUM 40 MG/VIAL IV SCH (08:27)
[2022-01-06] MEDS: PIPERACILLIN/TAZOBACTAM 3.375 G in DEXTROSE 5% WATER 50 ML IV SCH ×2 (08:27→21:30)
[2022-01-06 12:31] LABS: BG BASE EXCESS -7.1 mmol/L (-2.0-2.0); BG CARBOXYHEMOGLOBIN 0.3 % (0.5-1.5); BG FRACTION INSPIRED OXYGEN 50; BG HCO3 ACT 17.7 mmol/L (22.0-26.0); BG OXYHEMOGLOBIN 93.7 % (94.0-97.0); BG PCO2 32.5 mmHg (35.0-45.0); BG PH 7.354 (7.350-7.450); BG PO2 77.9 mmHg (75.0-100.0); BG SAMPLE SITE RIGHT RADIAL; BG TOTAL HEMOGLOBIN 8.6 g/dL (12.0-18.0); BG VENT MODE VENT - CPAP
[2022-01-06 13:54] LABS: PLATELET ESTIMATE NORMAL
[2022-01-07] VITALS (96 sets, daily range): BP systolic 107–153; BP diastolic 49–72
[2022-01-07] MEDS: PROPOFOL 10MG/ML 100ML 100 ML IV PRN ×6 (00:11→23:32)
[2022-01-07] MEDS: IPRATROPIUM/ALBUTEROL 0.5-3(2.5)MG/3ML NEB HHN SCH ×5 (00:41→20:17)
[2022-01-07] MEDS: INSULIN LISPRO 100 UNITS/ML SUBCUT SCH ×4 (06:36→21:00)
[2022-01-07] MEDS: BLOOD SUGAR DIAGNOSTIC STRIP TEST SCH ×4 (06:36→21:41)
[2022-01-07] MEDS: METHYLPREDNISOLONE SOD SUCC 40 MG/ML VIAL IV SCH ×2 (08:29→16:45)
[2022-01-07] MEDS: PIPERACILLIN/TAZOBACTAM 3.375 G in DEXTROSE 5% WATER 50 ML IV SCH ×2 (08:29→23:30)
[2022-01-07] MEDS: FOLIC ACID/VITAMIN B COMP W-C TABLET PO SCH (08:29)
[2022-01-07] MEDS: PANTOPRAZOLE SODIUM 40 MG/VIAL IV SCH (08:29)
[2022-01-07 15:15] LABS: HEMATOCRIT. 26.2 % (42.0-52.0); HEMOGLOBIN. 8.5 g/dL (14.0-18.0); MEAN CORPUSCULAR HEMOGLOBIN 30.4 pg (28.0-32.0); MEAN CORPUSCULAR VOLUME 94.3 fL (80.0-94.0); MEAN PLATELET VOLUME 8.1 fl (7.4-10.4); PLATELET 236 x1000/uL (130-400); RED BLOOD CELL COUNT 2.78 mill/uL (4.7-6.1); RED CELL DISTRIBUTION WIDTH 15.8 % (11.6-14.6)
[2022-01-07 15:47] LABS: HEPATITIS B SURFACE ANTIGEN NEGATIVE
[2022-01-07] MEDS: DOCUSATE SODIUM SUGAR FREE 100MG/10ML UDC NG SCH (16:45)
[2022-01-07 16:58] LABS: PLATELET ESTIMATE NORMAL
[2022-01-08] VITALS (96 sets, daily range): BP systolic 110–157; BP diastolic 49–74
[2022-01-08] MEDS: IPRATROPIUM/ALBUTEROL 0.5-3(2.5)MG/3ML NEB HHN SCH ×5 (00:51→20:38)
[2022-01-08] MEDS: METHYLPREDNISOLONE SOD SUCC 40 MG/ML VIAL IV SCH ×3 (01:58→17:53)
[2022-01-08] MEDS: PROPOFOL 10MG/ML 100ML 100 ML IV PRN (04:30)
[2022-01-08] MEDS: BLOOD SUGAR DIAGNOSTIC STRIP TEST SCH ×4 (06:30→21:11)
[2022-01-08] MEDS: INSULIN LISPRO 100 UNITS/ML SUBCUT SCH ×4 (07:20→21:00)
[2022-01-08 07:29] LABS: HEMATOCRIT. 27.9 % (42.0-52.0); HEMOGLOBIN. 9.1 g/dL (14.0-18.0); MEAN CORPUSCULAR HEMOGLOBIN 30.1 pg (28.0-32.0); MEAN CORPUSCULAR VOLUME 92.7 fL (80.0-94.0); MEAN PLATELET VOLUME 8.8 fl (7.4-10.4); PLATELET 268 x1000/uL (130-400); RED BLOOD CELL COUNT 3.02 mill/uL (4.7-6.1); RED CELL DISTRIBUTION WIDTH 15.5 % (11.6-14.6)
[2022-01-08] MEDS: PANTOPRAZOLE SODIUM 40 MG/VIAL IV SCH (08:34)
[2022-01-08] MEDS: PIPERACILLIN/TAZOBACTAM 3.375 G in DEXTROSE 5% WATER 50 ML IV SCH ×2 (08:34→21:16)
[2022-01-08] MEDS: HYDRALAZINE 20MG/ML VIAL IV PRN (08:35)
[2022-01-08] MEDS: DOCUSATE SODIUM SUGAR FREE 100MG/10ML UDC NG SCH (08:35)
[2022-01-08] MEDS: FOLIC ACID/VITAMIN B COMP W-C TABLET PO SCH (08:35)
[2022-01-08 09:51] LABS: BG BASE EXCESS -0.5 mmol/L (-2.0-2.0); BG CARBOXYHEMOGLOBIN 0.3 % (0.5-1.5); BG FRACTION INSPIRED OXYGEN 50; BG HCO3 ACT 23.7 mmol/L (22.0-26.0); BG METHEMOGLOBIN 0.1 % (0.0-1.5); BG OXYHEMOGLOBIN 97.6 % (94.0-97.0); BG PCO2 36.9 mmHg (35.0-45.0); BG PH 7.425 (7.350-7.450); BG PO2 127.9 mmHg (75.0-100.0); BG SAMPLE SITE RIGHT RADIAL; BG TOTAL HEMOGLOBIN 10.3 g/dL (12.0-18.0); BG VENT MODE VENT - CPAP
[2022-01-08 14:39] LABS: PLATELET ESTIMATE NORMAL
[2022-01-08 15:11] LABS: BG BASE EXCESS -1.9 mmol/L (-2.0-2.0); BG CARBOXYHEMOGLOBIN 0.4 % (0.5-1.5); BG DEOXYHEMOGLOBIN 1.7 % (0.0-5.0); BG HCO3 ACT 23.2 mmol/L (22.0-26.0); BG METHEMOGLOBIN 0.3 % (0.0-1.5); BG OXYGEN SATURATION 98.3 % (92.0-98.5); BG OXYHEMOGLOBIN 97.6 % (94.0-97.0); BG PCO2 40.6 mmHg (35.0-45.0); BG PH 7.374 (7.350-7.450); BG PO2 142.1 mmHg (75.0-100.0); BG SAMPLE SITE RIGHT RADIAL; BG TOTAL HEMOGLOBIN 11.8 g/dL (12.0-18.0); BG VENT MODE COOL AEROSOL
[2022-01-08] MEDS ORDERED: HYDROCODONE/ACETAMINOPHEN 5/325MG TABLET PO PRN (16:45)
[2022-01-08] MEDS ORDERED: ACETAMINOPHEN 650MG SUPP PR PRN (16:45)
[2022-01-08] MEDS ORDERED: ACETAMINOPHEN 325MG TABLET PO PRN (16:45)
[2022-01-08] MEDS: EPOETIN ALFA-EPBX 10,000 UNIT/ML VIAL SUBCUT SCH (21:33)
[2022-01-08 23:05] LABS: BG CARBOXYHEMOGLOBIN 0.6 % (0.5-1.5); BG DEOXYHEMOGLOBIN 8.8 % (0.0-5.0); BG FRACTION INSPIRED OXYGEN 98; BG HCO3 ACT 24.5 mmol/L (22.0-26.0); BG METHEMOGLOBIN 0.1 % (0.0-1.5); BG OXYGEN SATURATION 91.1 % (92.0-98.5); BG OXYHEMOGLOBIN 90.5 % (94.0-97.0); BG PCO2 43.9 mmHg (35.0-45.0); BG PH 7.364 (7.350-7.450); BG PO2 64.4 mmHg (75.0-100.0); BG SAMPLE SITE RIGHT BRACHIAL; BG TOTAL HEMOGLOBIN 10.3 g/dL (12.0-18.0); BG VENT MODE COOL AEROSOL
[2022-01-09] VITALS (60 sets, daily range): BP systolic 122–156; BP diastolic 43–100
[2022-01-09] MEDS: IPRATROPIUM/ALBUTEROL 0.5-3(2.5)MG/3ML NEB HHN SCH ×6 (00:18→20:51)
[2022-01-09] MEDS: METHYLPREDNISOLONE SOD SUCC 40 MG/ML VIAL IV SCH ×3 (01:02→17:29)
[2022-01-09 06:12] LABS: HEMATOCRIT. 29.6 % (42.0-52.0); HEMOGLOBIN. 9.5 g/dL (14.0-18.0); MEAN CORPUSCULAR HEMOGLOBIN 29.9 pg (28.0-32.0); MEAN CORPUSCULAR VOLUME 93.5 fL (80.0-94.0); MEAN PLATELET VOLUME 8.7 fl (7.4-10.4); PLATELET 289 x1000/uL (130-400); RED BLOOD CELL COUNT 3.17 mill/uL (4.7-6.1); RED CELL DISTRIBUTION WIDTH 16.1 % (11.6-14.6)
[2022-01-09] MEDS: BLOOD SUGAR DIAGNOSTIC STRIP TEST SCH ×4 (06:17→21:00)
[2022-01-09] MEDS: INSULIN LISPRO 100 UNITS/ML SUBCUT SCH ×4 (06:23→22:20)
[2022-01-09] MEDS ORDERED: NALOXONE HCL 0.4MG/ML VIAL IV PRN (08:00)
[2022-01-09] MEDS: DOCUSATE SODIUM SUGAR FREE 100MG/10ML UDC NG SCH (09:00)
[2022-01-09 09:14] LABS: PLATELET ESTIMATE NORMAL
[2022-01-09] MEDS: FOLIC ACID/VITAMIN B COMP W-C TABLET PO SCH (10:42)
[2022-01-09] MEDS: PANTOPRAZOLE SODIUM 40 MG/VIAL IV SCH (10:42)
[2022-01-09 10:51] LABS: BG BASE EXCESS -1.8 mmol/L (-2.0-2.0); BG CARBOXYHEMOGLOBIN 0.2 % (0.5-1.5); BG FRACTION INSPIRED OXYGEN 60; BG HCO3 ACT 23.3 mmol/L (22.0-26.0); BG METHEMOGLOBIN 0.4 % (0.0-1.5); BG OXYHEMOGLOBIN 96.4 % (94.0-97.0); BG PCO2 40.9 mmHg (35.0-45.0); BG PH 7.373 (7.350-7.450); BG PO2 108.9 mmHg (75.0-100.0); BG SAMPLE SITE RIGHT RADIAL; BG TOTAL HEMOGLOBIN 10.8 g/dL (12.0-18.0); BG VENT MODE COOL AEROSOL
[2022-01-10] VITALS (12 sets, daily range): BP systolic 126–148; BP diastolic 40–71
[2022-01-10] MEDS: METHYLPREDNISOLONE SOD SUCC 40 MG/ML VIAL IV SCH ×3 (00:30→16:58)
[2022-01-10] MEDS: IPRATROPIUM/ALBUTEROL 0.5-3(2.5)MG/3ML NEB HHN SCH ×6 (01:35→20:40)
[2022-01-10] MEDS: INSULIN LISPRO 100 UNITS/ML SUBCUT SCH ×4 (07:56→21:41)
[2022-01-10] MEDS: DOCUSATE SODIUM SUGAR FREE 100MG/10ML UDC NG SCH (08:00)
[2022-01-10] MEDS: PANTOPRAZOLE SODIUM 40 MG/VIAL IV SCH (08:00)
[2022-01-10] MEDS: FOLIC ACID/VITAMIN B COMP W-C TABLET PO SCH (08:00)
[2022-01-10] MEDS: BLOOD SUGAR DIAGNOSTIC STRIP TEST SCH ×4 (08:00→21:00)
[2022-01-10] MEDS ORDERED: DEXTROSE 50% WATER 50ML SYRINGE IV PRN (16:30)
[2022-01-10] MEDS ORDERED: LEVOFLOXACIN 250MG PREMIX 50 ML IV SCH (18:00)
[2022-01-10] MEDS ORDERED: LEVOFLOXACIN 500MG PREMIX 100 ML IV NR (18:00)
[2022-01-10 18:19] LABS: HEPATITIS B SURFACE ANTIGEN NEGATIVE
[2022-01-10] MEDS: EPOETIN ALFA-EPBX 10,000 UNIT/ML VIAL SUBCUT SCH (21:22)
[2022-01-11] VITALS (12 sets, daily range): BP systolic 133–164; BP diastolic 54–91
[2022-01-11] MEDS: IPRATROPIUM/ALBUTEROL 0.5-3(2.5)MG/3ML NEB HHN SCH ×6 (00:49→20:19)
[2022-01-11] MEDS: METHYLPREDNISOLONE SOD SUCC 40 MG/ML VIAL IV SCH ×2 (04:55→17:11)
[2022-01-11 07:16] LABS: HEMATOCRIT. 29.3 % (42.0-52.0); HEMOGLOBIN. 9.4 g/dL (14.0-18.0); MEAN CORPUSCULAR HEMOGLOBIN 29.7 pg (28.0-32.0); MEAN CORPUSCULAR VOLUME 92.9 fL (80.0-94.0); MEAN PLATELET VOLUME 8.4 fl (7.4-10.4); PLATELET 317 x1000/uL (130-400); RED BLOOD CELL COUNT 3.16 mill/uL (4.7-6.1); RED CELL DISTRIBUTION WIDTH 15.7 % (11.6-14.6)
[2022-01-11] MEDS: BLOOD SUGAR DIAGNOSTIC STRIP TEST SCH ×4 (07:30→21:00)
[2022-01-11] MEDS ORDERED: ALTEPLASE 2MG/VIAL ITC ONE (07:45)
[2022-01-11] MEDS: INSULIN LISPRO 100 UNITS/ML SUBCUT SCH ×4 (07:59→20:45)
[2022-01-11] MEDS ORDERED: IOHEXOL-300 100 ML BOTTLE IV SCH (08:00)
[2022-01-11] MEDS ORDERED: LIDOCAINE HCL 1% 20ML VIAL (Pyxis) INJ INFIL SCH (08:00)
[2022-01-11] MEDS ORDERED: FENTANYL CITRATE/PF 50MCG/ML 1ML VIAL IV SCH (08:00)
[2022-01-11] MEDS ORDERED: HEPARIN 1000 UNITS/ML 10ML IV SCH (08:00)
[2022-01-11] MEDS: DOCUSATE SODIUM SUGAR FREE 100MG/10ML UDC NG SCH (09:10)
[2022-01-11] MEDS: PANTOPRAZOLE SODIUM 40 MG/VIAL IV SCH (09:10)
[2022-01-11] MEDS: FOLIC ACID/VITAMIN B COMP W-C TABLET PO SCH (09:10)
[2022-01-11 14:27] LABS: PLATELET ESTIMATE NORMAL
[2022-01-11] MEDS ORDERED: IPRATROPIUM/ALBUTEROL 0.5-3(2.5)MG/3ML NEB HHN PRN (17:45)
[2022-01-11] MEDS ORDERED: LORAZEPAM 1MG TABLET PO PRN (17:45)
[2022-01-11] MEDS: EPOETIN ALFA-EPBX 10,000 UNIT/ML VIAL SUBCUT SCH (20:44)
[2022-01-12] VITALS (9 sets, daily range): BP systolic 110–157; BP diastolic 63–78
[2022-01-12] MEDS: IPRATROPIUM/ALBUTEROL 0.5-3(2.5)MG/3ML NEB HHN SCH ×4 (01:56→21:06)
[2022-01-12] MEDS: METHYLPREDNISOLONE SOD SUCC 40 MG/ML VIAL IV SCH ×2 (04:10→17:29)
[2022-01-12] MEDS: BLOOD SUGAR DIAGNOSTIC STRIP TEST SCH ×4 (07:30→20:28)
[2022-01-12] MEDS: PANTOPRAZOLE SODIUM 40 MG/VIAL IV SCH (09:41)
[2022-01-12] MEDS: DOCUSATE SODIUM SUGAR FREE 100MG/10ML UDC NG SCH (09:42)
[2022-01-12] MEDS: INSULIN LISPRO 100 UNITS/ML SUBCUT SCH ×4 (09:51→20:35)
[2022-01-12] MEDS: FOLIC ACID/VITAMIN B COMP W-C TABLET PO SCH (09:57)
[2022-01-12] MEDS: LEVOFLOXACIN 250MG PREMIX 50 ML IV SCH (18:55)
[2022-01-13] VITALS: BP 155/67
[2022-01-13] MEDS: IPRATROPIUM/ALBUTEROL 0.5-3(2.5)MG/3ML NEB HHN SCH ×5 (00:48→20:25)
[2022-01-13 04:00] VITALS: BP 152/74
[2022-01-13] MEDS: METHYLPREDNISOLONE SOD SUCC 40 MG/ML VIAL IV SCH ×2 (05:22→17:24)
[2022-01-13] MEDS: BLOOD SUGAR DIAGNOSTIC STRIP TEST SCH ×4 (06:31→20:09)
[2022-01-13 08:00] VITALS: BP 143/72
[2022-01-13] MEDS: DOCUSATE SODIUM SUGAR FREE 100MG/10ML UDC NG SCH (08:57)
[2022-01-13] MEDS: FOLIC ACID/VITAMIN B COMP W-C TABLET PO SCH (08:57)
[2022-01-13] MEDS: INSULIN LISPRO 100 UNITS/ML SUBCUT SCH ×4 (09:00→20:10)
[2022-01-13] MEDS: PANTOPRAZOLE SODIUM 40 MG/VIAL IV SCH (09:02)
[2022-01-13 12:00] VITALS: BP 133/65
[2022-01-13 16:00] VITALS: BP 147/64
[2022-01-13 20:00] VITALS: BP 102/55
[2022-01-13] MEDS: HEPARIN 5000 UNITS/ML VIAL SUBCUT SCH (20:22)
[2022-01-13] MEDS: EPOETIN ALFA-EPBX 10,000 UNIT/ML VIAL SUBCUT SCH (20:46)
[2022-01-14] VITALS: BP 152/69
[2022-01-14] MEDS: IPRATROPIUM/ALBUTEROL 0.5-3(2.5)MG/3ML NEB HHN SCH ×5 (00:42→21:42)
[2022-01-14 04:00] VITALS: BP 156/74
[2022-01-14] MEDS: METHYLPREDNISOLONE SOD SUCC 40 MG/ML VIAL IV SCH ×2 (04:57→16:29)
[2022-01-14 05:56] LABS: HEMATOCRIT. 30.6 % (42.0-52.0); HEMOGLOBIN. 9.9 g/dL (14.0-18.0); MEAN CORPUSCULAR HEMOGLOBIN 29.9 pg (28.0-32.0); MEAN CORPUSCULAR VOLUME 92.7 fL (80.0-94.0); PLATELET 324 x1000/uL (130-400); RED BLOOD CELL COUNT 3.31 mill/uL (4.7-6.1); RED CELL DISTRIBUTION WIDTH 15.9 % (11.6-14.6)
[2022-01-14] MEDS: BLOOD SUGAR DIAGNOSTIC STRIP TEST SCH ×4 (06:21→21:49)
[2022-01-14 08:00] VITALS: BP 151/70
[2022-01-14] MEDS: HEPARIN 5000 UNITS/ML VIAL SUBCUT SCH (09:00)
[2022-01-14] MEDS: DOCUSATE SODIUM SUGAR FREE 100MG/10ML UDC NG SCH (10:01)
[2022-01-14] MEDS: PANTOPRAZOLE SODIUM 40 MG/VIAL IV SCH (10:01)
[2022-01-14] MEDS: FOLIC ACID/VITAMIN B COMP W-C TABLET PO SCH (10:01)
[2022-01-14] MEDS: INSULIN LISPRO 100 UNITS/ML SUBCUT SCH ×4 (11:30→21:00)
[2022-01-14 14:25] LABS: PLATELET ESTIMATE NORMAL
[2022-01-14 16:00] VITALS: BP 135/58
[2022-01-14] MEDS: LEVOFLOXACIN 250MG PREMIX 50 ML IV SCH (16:30)
[2022-01-14] MEDS ORDERED: LORAZEPAM 1MG TABLET PO PRN (18:15)
[2022-01-14 20:00] VITALS: BP 141/71
[2022-01-15] VITALS (14 sets, daily range): BP systolic 137–170; BP diastolic 43–78
[2022-01-15] MEDS: IPRATROPIUM/ALBUTEROL 0.5-3(2.5)MG/3ML NEB HHN SCH ×6 (00:18→21:37)
[2022-01-15] MEDS: METHYLPREDNISOLONE SOD SUCC 40 MG/ML VIAL IV SCH ×2 (05:09→18:15)
[2022-01-15] MEDS: BLOOD SUGAR DIAGNOSTIC STRIP TEST SCH ×4 (06:40→21:03)
[2022-01-15] MEDS: DOCUSATE SODIUM SUGAR FREE 100MG/10ML UDC NG SCH (09:00)
[2022-01-15] MEDS ORDERED: ALTEPLASE 2MG/VIAL ITC NR (09:00)
[2022-01-15] MEDS: FOLIC ACID/VITAMIN B COMP W-C TABLET PO SCH (09:00)
[2022-01-15] MEDS: PANTOPRAZOLE SODIUM 40 MG/VIAL IV SCH (09:35)
[2022-01-15] MEDS: INSULIN LISPRO 100 UNITS/ML SUBCUT SCH ×4 (09:41→21:08)
[2022-01-15 09:42] LABS: PARTIAL THROMBOPLASTIN TIME 29.1 sec (23.4-31.0); PROTHROMBIN TIME 11.2 sec (9.6-11.0)
[2022-01-15 09:45] LABS: BASOPHILS % 0.4 % (0.0-2.0); EOSINOPHILS % 1.8 % (0.0-5.0); HEMATOCRIT. 28.5 % (42.0-52.0); HEMOGLOBIN. 9.3 g/dL (14.0-18.0); LYMPHOCYTES % 9.6 % (20.0-50.0); MEAN CORPUSCULAR HEMOGLOBIN 30.7 pg (28.0-32.0); MEAN CORPUSCULAR VOLUME 94.5 fL (80.0-94.0); MEAN PLATELET VOLUME 7.9 fl (7.4-10.4); MONOCYTES % 8.8 % (2.0-8.0); NEUTROPHILS % 79.4 % (40.0-76.0); PLATELET 283 x1000/uL (130-400); RED BLOOD CELL COUNT 3.01 mill/uL (4.7-6.1); RED CELL DISTRIBUTION WIDTH 16.2 % (11.6-14.6)
[2022-01-15] MEDS ORDERED: IOHEXOL-300 100 ML BOTTLE ONE (11:10)
[2022-01-15] MEDS ORDERED: LIDOCAINE HCL 1% 10 MG/ML 10ML VIAL ONE (11:10)
[2022-01-15 15:06] LABS: HEPATITIS B SURFACE ANTIGEN NEGATIVE
[2022-01-16] VITALS: BP 151/71
[2022-01-16] MEDS: IPRATROPIUM/ALBUTEROL 0.5-3(2.5)MG/3ML NEB HHN SCH ×6 (01:00→20:31)
[2022-01-16 04:00] VITALS: BP 148/66
[2022-01-16] MEDS: METHYLPREDNISOLONE SOD SUCC 40 MG/ML VIAL IV SCH ×2 (06:00→17:55)
[2022-01-16] MEDS: INSULIN LISPRO 100 UNITS/ML SUBCUT SCH ×4 (07:52→21:00)
[2022-01-16] MEDS: BLOOD SUGAR DIAGNOSTIC STRIP TEST SCH ×4 (07:52→21:33)
[2022-01-16 08:00] VITALS: BP 128/64
[2022-01-16] MEDS: DOCUSATE SODIUM SUGAR FREE 100MG/10ML UDC NG SCH (09:00)
[2022-01-16] MEDS: PANTOPRAZOLE SODIUM 40 MG/VIAL IV SCH (09:13)
[2022-01-16] MEDS: FOLIC ACID/VITAMIN B COMP W-C TABLET PO SCH (09:14)
[2022-01-16 12:00] VITALS: BP 164/88
[2022-01-16 16:00] VITALS: BP 138/60
[2022-01-16 20:00] VITALS: BP 126/52
[2022-01-16] MEDS: EPOETIN ALFA-EPBX 10,000 UNIT/ML VIAL SUBCUT SCH (21:34)
[2022-01-17] VITALS: BP 155/71
[2022-01-17] MEDS: IPRATROPIUM/ALBUTEROL 0.5-3(2.5)MG/3ML NEB HHN SCH ×6 (00:01→20:46)
[2022-01-17 04:00] VITALS: BP 105/66
[2022-01-17] MEDS: BLOOD SUGAR DIAGNOSTIC STRIP TEST SCH ×4 (06:18→21:55)
[2022-01-17] MEDS: METHYLPREDNISOLONE SOD SUCC 40 MG/ML VIAL IV SCH ×2 (06:19→16:50)
[2022-01-17 08:00] VITALS: BP 142/67
[2022-01-17] MEDS: DOCUSATE SODIUM SUGAR FREE 100MG/10ML UDC NG SCH (09:00)
[2022-01-17] MEDS: FOLIC ACID/VITAMIN B COMP W-C TABLET PO SCH (09:10)
[2022-01-17] MEDS: PANTOPRAZOLE SODIUM 40 MG/VIAL IV SCH (09:10)
[2022-01-17] MEDS: INSULIN LISPRO 100 UNITS/ML SUBCUT SCH ×4 (09:11→23:18)
[2022-01-17 12:00] VITALS: BP 140/83
[2022-01-17 16:00] VITALS: BP 145/64
[2022-01-17 20:00] VITALS: BP 168/88
[2022-01-17] MEDS: HYDRALAZINE 20MG/ML VIAL IV PRN (23:15)
[2022-01-18] VITALS (7 sets, daily range): BP systolic 142–166; BP diastolic 58–73
[2022-01-18] MEDS: IPRATROPIUM/ALBUTEROL 0.5-3(2.5)MG/3ML NEB HHN SCH ×6 (00:53→20:38)
[2022-01-18] MEDS: BLOOD SUGAR DIAGNOSTIC STRIP TEST SCH ×3 (07:40→17:46)
[2022-01-18] MEDS: INSULIN LISPRO 100 UNITS/ML SUBCUT SCH ×3 (08:10→18:11)
[2022-01-18] MEDS: METHYLPREDNISOLONE SOD SUCC 40 MG/ML VIAL IV SCH ×2 (09:53→17:57)
[2022-01-18] MEDS: FOLIC ACID/VITAMIN B COMP W-C TABLET PO SCH (10:15)
[2022-01-18] MEDS: PANTOPRAZOLE SODIUM 40 MG/VIAL IV SCH (10:15)
[2022-01-18] MEDS: DOCUSATE SODIUM SUGAR FREE 100MG/10ML UDC NG SCH (10:17)
[2022-01-18 21:40] LABS: HEMATOCRIT. 31.9 % (42.0-52.0); HEMOGLOBIN. 10.1 g/dL (14.0-18.0); MEAN CORPUSCULAR HEMOGLOBIN 30.1 pg (28.0-32.0); MEAN CORPUSCULAR VOLUME 94.8 fL (80.0-94.0); MEAN PLATELET VOLUME 8.5 fl (7.4-10.4); PLATELET 259 x1000/uL (130-400); RED BLOOD CELL COUNT 3.36 mill/uL (4.7-6.1); RED CELL DISTRIBUTION WIDTH 18.5 % (11.6-14.6)
[2022-01-18 21:52] LABS: PLATELET ESTIMATE NORMAL
== END 2022-01-18 21:15 | disposition home or self-care (01) | DRG 314 ==
LOC: ER 15:00 → 5EST 18:56 → ENRESERV 22:02 → ER 23:08 → MICUNO 01-04 04:26 → 5EST 01-09 14:42 → 7WST 01-12 12:41
PROVIDERS: ADMIT Internal Medicine; ATTEND Internal Medicine
PROC: 5A09357 Assistance with Respiratory Ventilation, Less than 24 Consecutive Hours, Continuous Positive Airway Pressure (ICD-10-PCS; 2022-01-03)
PROC: 5A1945Z Respiratory Ventilation, 24-96 Consecutive Hours (ICD-10-PCS; principal; 2022-01-04)
PROC: 06HY33Z Insertion of Infusion Device into Lower Vein, Percutaneous Approach (ICD-10-PCS; 2022-01-04)
PROC: B54BZZA Ultrasonography of Right Lower Extremity Veins, Guidance (ICD-10-PCS; 2022-01-04)
PROC: B51BZZA Fluoroscopy of Right Lower Extremity Veins, Guidance (ICD-10-PCS; 2022-01-04)
PROC: 5A1D70Z Performance of Urinary Filtration, Intermittent, Less than 6 Hours Per Day (ICD-10-PCS; 2022-01-04)
PROC: 0BH17EZ Insertion of Endotracheal Airway into Trachea, Via Natural or Artificial Opening (ICD-10-PCS; 2022-01-04)
PROC: 5A1D70Z Performance of Urinary Filtration, Intermittent, Less than 6 Hours Per Day (ICD-10-PCS; 2022-01-05)
PROC: 5A1D70Z Performance of Urinary Filtration, Intermittent, Less than 6 Hours Per Day (ICD-10-PCS; 2022-01-07)
PROC: 5A1D70Z Performance of Urinary Filtration, Intermittent, Less than 6 Hours Per Day (ICD-10-PCS; 2022-01-08)
PROC: 5A1D70Z Performance of Urinary Filtration, Intermittent, Less than 6 Hours Per Day (ICD-10-PCS; 2022-01-11)
PROC: 5A1D70Z Performance of Urinary Filtration, Intermittent, Less than 6 Hours Per Day (ICD-10-PCS; 2022-01-13)
PROC: 5A1D70Z Performance of Urinary Filtration, Intermittent, Less than 6 Hours Per Day (ICD-10-PCS; 2022-01-14)
PROC: B51W1ZZ Fluoroscopy of Dialysis Shunt/Fistula using Low Osmolar Contrast (ICD-10-PCS; 2022-01-15)
PROC: B5181ZZ Fluoroscopy of Superior Vena Cava using Low Osmolar Contrast (ICD-10-PCS; 2022-01-15)
PROC: B31N1ZZ Fluoroscopy of Other Upper Arteries using Low Osmolar Contrast (ICD-10-PCS; 2022-01-15)
PROC: 5A1D70Z Performance of Urinary Filtration, Intermittent, Less than 6 Hours Per Day (ICD-10-PCS; 2022-01-16)
PROC: 5A1D70Z Performance of Urinary Filtration, Intermittent, Less than 6 Hours Per Day (ICD-10-PCS; 2022-01-18)
DX: T82.868A Thrombosis due to vascular prosthetic devices, implants and grafts, initial encounter (principal); I50.33 Acute on chronic diastolic (congestive) heart failure; J96.01 Acute respiratory failure with hypoxia; N18.6 End stage renal disease; J18.9 Pneumonia, unspecified organism; E87.2 Acidosis; G93.49 Other encephalopathy; E87.1 Hypo-osmolality and hyponatremia; I13.2 Hypertensive heart and chronic kidney disease with heart failure and with stage 5 chronic kidney disease, or end stage renal disease; N02.8 Recurrent and persistent hematuria with other morphologic changes; D64.9 Anemia, unspecified; E78.5 Hyperlipidemia, unspecified; Z20.822 Contact with and (suspected) exposure to COVID-19; Y83.8 Other surgical procedures as the cause of abnormal reaction of the patient, or of later complication, without mention of misadventure at the time of the procedure; E11.22 Type 2 diabetes mellitus with diabetic chronic kidney disease; E87.5 Hyperkalemia; Z99.2 Dependence on renal dialysis; Z79.899 Other long term (current) drug therapy; Z90.49 Acquired absence of other specified parts of digestive tract; Y92.89 Other specified places as the place of occurrence of the external cause; E83.51 Hypocalcemia
CPT/HCPCS: 31500; 36415; 36556; 36600; 36901; 71045; 76937; 80048; 80053; 80202; 82375; 82805; 82962; 83036; 83605; 83735; 83880; 84100; 84132; 84145; 84478; 84484; 85025; 85027; 86705; 86709; 86803; 87070; 87340; 87426; 92610; 93005; 93970; 94002; 94003; 94640; 94660; 97116; 97162; 97166; 97530; 99291; C1752; C1887; C1893; C9113; C9803; J0360; J0610; J0885; J1644; J1815; J1956; J2405; J2543; J2704; J2920; J2997; J3010; J3370; J3490; J7060; Q9967

== ENCOUNTER 2022-01-23 20:05 | Inpatient (IN) | payer BC ==
[~2022-01-23] VITALS: Ht 162.6 cm; Wt 62.9 kg
[2022-01-23 23:24] LABS: BASOPHILS % 0.9 % (0.0-2.0); EOSINOPHILS % 2.3 % (0.0-5.0); HEMATOCRIT. 31.8 % (42.0-52.0); HEMOGLOBIN. 9.9 g/dL (14.0-18.0); LYMPHOCYTES % 17.5 % (20.0-50.0); MEAN CORPUSCULAR HEMOGLOBIN 30.5 pg (28.0-32.0); MEAN CORPUSCULAR VOLUME 98.2 fL (80.0-94.0); MEAN PLATELET VOLUME 8.2 fl (7.4-10.4); MONOCYTES % 7.5 % (2.0-8.0); NEUTROPHILS % 71.8 % (40.0-76.0); PLATELET 174 x1000/uL (130-400); RED BLOOD CELL COUNT 3.24 mill/uL (4.7-6.1)
[2022-01-23 23:32] LABS: CHLORIDE 106 mEq/L (98-107)
[2022-01-24] MEDS ORDERED: ACETAMINOPHEN 325MG TABLET PO ONE (03:45)
[2022-01-24 10:00] VITALS: BP 182/74
[2022-01-24] MEDS ORDERED: SULF1TAB48 MT (11:34)
[2022-01-24] MEDS ORDERED: MULT-1146 MT (11:34)
[2022-01-24] MEDS ORDERED: INSU100I28 SQ (11:34)
[2022-01-24 12:00] VITALS: BP 164/73
[2022-01-24] MEDS ORDERED: CLONIDINE 0.1MG TABLET PO PRN (12:45)
[2022-01-24] MEDS ORDERED: TRAMADOL 50MG TABLET PO PRN (12:45)
[2022-01-24] MEDS ORDERED: DEXTROSE 50% WATER 50ML SYRINGE IV PRN (12:45)
[2022-01-24] MEDS ORDERED: POLYETHYLENE GLYCOL 3350 (17GM) 1 DOSE PACK PO PRN (12:45)
[2022-01-24 16:00] VITALS: BP 158/73
[2022-01-24] MEDS: DOCUSATE SODIUM 100MG CAPSULE PO SCH (17:00)
[2022-01-24] MEDS: BLOOD SUGAR DIAGNOSTIC STRIP TEST SCH ×2 (17:20→21:14)
[2022-01-24] MEDS: INSULIN LISPRO 100 UNITS/ML SUBCUT SCH ×2 (18:55→21:14)
[2022-01-24 20:00] VITALS: BP 180/82
[2022-01-24 20:04] LABS: HEPATITIS B SURFACE ANTIGEN NEGATIVE
[2022-01-24] MEDS ORDERED: TAMSULOSIN HCL 0.4MG SR CAPSULE PO SCH (21:00)
[2022-01-24] MEDS: HEPARIN 5000 UNITS/ML VIAL SUBCUT SCH (21:12)
[2022-01-25] VITALS: BP 173/68
[2022-01-25 04:00] VITALS: BP 161/69
[2022-01-25] MEDS: BLOOD SUGAR DIAGNOSTIC STRIP TEST SCH ×2 (07:20→12:20)
[2022-01-25] MEDS: INSULIN LISPRO 100 UNITS/ML SUBCUT SCH ×2 (07:50→12:50)
[2022-01-25 08:00] VITALS: BP 152/72
[2022-01-25] MEDS ORDERED: PREDNISONE 5MG TABLET PO SCH (09:00)
[2022-01-25] MEDS: DOCUSATE SODIUM 100MG CAPSULE PO SCH (09:00)
[2022-01-25] MEDS ORDERED: PANTOPRAZOLE 40MG DR TABLET PO SCH (09:00)
[2022-01-25] MEDS ORDERED: AMLODIPINE 10MG TABLET PO SCH (09:00)
[2022-01-25] MEDS: HEPARIN 5000 UNITS/ML VIAL SUBCUT SCH (09:08)
[2022-01-25 12:00] VITALS: BP 164/85
[2022-01-25 15:08] VITALS: BP 140/80
[2022-01-26] MEDS ORDERED: SULFAMETHOXAZOLE/TRIMETHOPRIM 800/160MG TABLET PO SCH (07:20)
== END 2022-01-25 16:32 | disposition home or self-care (01) | DRG 314 ==
LOC: ER 20:05 → 6WST 01-24 03:46 → ENRESERV 01-24 08:35
PROVIDERS: ADMIT Internal Medicine; ATTEND Internal Medicine
DX: T82.510A Breakdown (mechanical) of surgically created arteriovenous fistula, initial encounter (principal); N18.6 End stage renal disease; I13.2 Hypertensive heart and chronic kidney disease with heart failure and with stage 5 chronic kidney disease, or end stage renal disease; T86.12 Kidney transplant failure; E87.5 Hyperkalemia; I50.9 Heart failure, unspecified; E78.5 Hyperlipidemia, unspecified; E11.22 Type 2 diabetes mellitus with diabetic chronic kidney disease; Z79.4 Long term (current) use of insulin; Z90.49 Acquired absence of other specified parts of digestive tract; Z79.899 Other long term (current) drug therapy; Y83.2 Surgical operation with anastomosis, bypass or graft as the cause of abnormal reaction of the patient, or of later complication, without mention of misadventure at the time of the procedure; Y92.89 Other specified places as the place of occurrence of the external cause
CPT/HCPCS: 36415; 71045; 80053; 82962; 83036; 85025; 86705; 86709; 86803; 86850; 86900; 87340; 93005; 99285; J1644; J1815; J7512